=== PATIENT | female | born 1950 | race Caucasian/White ===

== ENCOUNTER 2022-06-30 13:28 | Outpatient (CLI) | payer MEDICARE, BC, SELFPAY ==
--- OUTSIDE RECORDS SUMMARY | 2022-06-30 13:31 | XMS_ITS | Encounter Summary ---
:1950 Author Organization [facility] Address [address] [place] [address]. [place] [address] Care Team Providers Name Role Phone Anila Quiñones MD Primary Care Provider Reason for Visit Auth/Cert Specialty Diagnoses / Procedures Referred By Contact Refer red To Contact Surgery Diagnoses UTEROVAGINAL PROLAPSE, STRESS URINARY INCONTINENCE Rh Periop Services Procedures [facility] PELVIC PROCEDURE [address] [place], [place] [phone] Fax: Referral ID Status Reason Start Date Expiration Date Visits Requ ested Visits Authorized [id number] 1 1 Encounter Details Date Type Department Care Team Description 12/17/2018 Anesthesia Event [facility] Tae Beckford MD [facility] [address] [place], [place] [id number] PeriOp Services Huong Delvalle APRN PHYSICAL ANTHROPOLOGIST [address] [facility] [address] [place], [place] [id number] [address] [place] [address] Anesthesia Record Procedure Summary Procedure Name Responsible Anesthesia Start Anesthesia Stop Anesthesiologist Time Time ROBOTIC ASSISTED Tae Wang, 12/17/18 0800 12/17 1143 LAPAROSCOPIC SUPRACERVICAL HYSTERECTOMY, BILATERAL SALPINGO OOPHORECTOMY, sacral colpopexy , AND CYSTOSCOPY (Bilateral Abdomen) Events Date Time Event Comment 12/17/2018 0800 An Start 0800 An Start Data 0800 Present 0801 An Induction 0801 MD Present 0805 An Intubation 0805 MD Present 0809 MD Present 0828 AN INCISION 0846 MD Present 0921 MD Present 1017 MD Present 1058 MD Present 1135 an stop data 1137 MD Present 1143 An Stop Electronically s igned by Huong Delvalle on December 17 9 11:43 AM 1143 MD Present Name Total midazolam 1mg/mL 1 mg fentaNYL (SUBLIMAZE) injection 200 mcg propofol (DIPRIVAN) injection 10 mg/mL vial 200 mg propofol infusion (mcg/kg/min) 515.2 mg lidocaine 1% 50 mg glycopyrrolate 0.2 mg/mL 0.9 mg neostigmine 1mg/mL 3 mg rocuronium 10mg/mL 60 mg dexamethasone 4 mg/mL 4 mg ondansetron 2 mg/mL 4 mg HYDROmorphone 1 mg/ml 1 mg ePHEDrine 5 mg/mL 15 mg phenylephrine (ALMA-SYNEPHRINE) injection 300 mcg ceFAZolin (ANCEF) intermittent infusion 2 g in 100 mL dextrose PRE-MIX 2 g esmolol 10 mg/mL 10 mg ceFAZolin (ANCEF) 1 g vial to attach to NS 100 ml bag for ADULT or 50 ml bag 1 g for PEDS lactated ringers infusion 1,000 mL Agents Name NO HELIOX O2 N2O Air Exp Sevoflurane Exp Isoflurane Exp Desflurane Exp N2O Ins Sevoflurane Ins Isoflurane Ins Desflurane O2 Auxiliary Blood No blood administrations on file. Lines, Drains, and Airways Type Details Placement Removal Incision/Surgical Site 12/17/18; 0902; Abdomen 12/17/18 0902 by Kelly Garcia RN Incision/Surgical Site 12/17/18; 0902; Vagina 12/17/18 0902 by Kelly Garcia RN Urethral Catheter 12/17/18; No; /GI/EXECUTIVE DIRECTOR OF MARKETING 12/17/18 0000 by 12/18 1239 by Pelvic Procedure; 16 fr Kelly Garcia RN Anderso n, Michelle, RN Peripheral IV 12/17/18; 0725; 22 G, 1 12/17/18 0725 by 9 1817 by 1/2 inch; Left, Dorsal; Tae Wang Dominique N Hand; Alcohol; MD Dave Injectable; Tolerated well RETIRED ETT 12/17/18; 0805; Mask 12/17/18 0805 by 12/17/18 1 134 by Ventilation: Easy; Ease Naomi Delvalle, of Intubation: Easy; Huong A, TRACTOR ENGINE MECHANIC Huong A , TRACTOR ENGINE MECHANIC Airway Size: 7; Cuffed; PHYSICAL ANTHROPOLOGIST PHYSICAL ANTHROPOLOGIST Oral; Blade Type: Verdin; Blade Size: 2; Place by: Joyce; Insertion Attempts: 1; Secured at (cm)to lip: 21 cm; Breath Sounds: Equal, clear and bilateral; End Tidal CO2: Present; Dentition: Unchanged, Intact; Grade View of Cords: 1 Gastric Tube 12/17/18; 0821; 12/17/18 0821 by 12/17/18 1230 b y Decompression; 18 fr; Tiffany Delvalle A lyssa, RN Aspiration of gastric Huong A, TRACTOR ENGINE MECHANIC content, Respiratory PHYSICAL ANTHROPOLOGIST status unchanged Packing 12/17/18; 1101; Vagina; 12/17/18 1101 by 9 1238 by (vaginal packing ); 1; Kelly Garcia, Sakina Connolly, 12/18/18; 1238 RN documented in this encounter Social History Tobacco Use Types Packs/Day Years Used Date Former Smoker Smokeless Tobacco: Never Used Comments: Quit 1988 Alcohol Use Standard Drinks/Week Comments No 0 (1 standard drink = 0.6 oz pure alcoho l) 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 Never 12/11/2018 How many drinks containing alcohol do you have on a Not aske d typical day when you are drinking? How often do you have six or more drinks on one Not asked occasion? 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 Incomplete uterovaginal prolapse. 2. Associated cystocele, rectocele and enterocele Anesthesia Type: General, ETT Note: Anesthesia Post Evaluation Patient location during evaluation: PACU Patient participation: Able to fully participate in evaluation Level of consciousness: awake Pain management: adequate Airway patency: patent Cardiovascular status: acceptable Respiratory status: acceptable Hydration status: acceptable PONV: controlled Anesthetic complications: None Last vitals: Vitals: 12/17/18 1245 12/17/18 1300 12/17/18 1348 BP: 125/69 119/56 Pulse: 65 Resp: 12 10 12 Temp: SpO2: 100% 100% Electronically Signed By: Armando Elizabeth DO December 17, 2018 3:21 PM H WORKER Anesthesia Preprocedure Evaluation - Tae Wang MD - 12/17/2018 7:27 AM CST Anesthesia Pre-Procedure Evaluation Patient: Yen Farrar : 1950 Preoperative Diagnosis: UTEROVAGINAL PROLAPSE, STRESS URINARY INCONTINENCE Procedure(s): ROBOTIC ASSISTED LAPAROSCOIC SUPRACERVICAL HYSTERECTOMY, BILATERAL SALPINGO OOPHORECTOMY, POSSIBLE RETROPUBIC MIDURETHRAL SLING,AND CYSTOSCOPY, POSSIBLE TRANSVAGINAL RECTOCELE REPAIR, SACROCOLPOPEXY Past Medical History: Diagnosis Date ??? Hyperlipidemia ??? Hypertension Past Surgical History: Procedure Laterality Date ??? BIOPSY OF MOUTH LESION ??? LAPAROSCOPY DIAGNOSTIC (EXECUTIVE DIRECTOR OF MARKETING) ??? ORTHOPEDIC SURGERY Left Elbow surgery, and metal removed ??? TONSILLECTOMY Anesthesia Evaluation . Pt has had prior anesthetic. No history of anesthetic complications ROS/MED HX ENT/Pulmonary: - neg pulmonary ROS Neurologic: - neg neurologic ROS Cardiovascular: (+) Dyslipidemia, hypertension----. : . . . :. . METS/Exercise Tolerance: Hematologic: - neg hematologic ROS Musculoskeletal: - neg musculoskeletal ROS GI/Hepatic: - neg GI/hepatic ROS Renal/Genitourinary: - ROS Renal section negative Endo: - neg endo ROS Psychiatric: - neg psychiatric ROS Infectious Disease: Malignancy: - no malignancy Other: - neg other ROS Physical Exam Normal systems: cardiovascular, pulmonary and dental Airway Mallampati: I TM distance: >3 FB Neck ROM: full Dental Cardiovascular Pulmonary Lab Results Component Value Date HGB 14.3 12/17/2018 Preop Vitals BP Readings from Last 3 Encounters: 12/17/18 136/84 Pulse Readings from Last 3 Encounters: No data found for Pulse Resp Readings from Last 3 Encounters: 12/17/18 17 SpO2 Readings from Last 3 Encounters: 12/17/18 100% Temp Readings from Last 1 Encounters: 12/17/18 98.3 ??F (36.8 ??C) (Temporal) Ht Readings from Last 1 Encounters: 12/17/18 1.626 m (5' 4) Wt Readings from Last 1 Encounters: 12/17/18 64 kg (141 lb) Estimated body mass index is 24.2 kg/m?? as calculated from the following: Height as of this encounter: 1.626 m (5' 4). Weight as of this encounter: 64 kg (141 lb). Anesthesia Plan History & Physical Review History and physical reviewed and following examination; no interval change. ASA Status: 2 . NPO Status: > 8 hours Plan for General and ETT with Intravenous and Propofol induction. Maintenance will be Balanced. PONV prophylaxis: Ondansetron (or other 5HT-3) and Dexamethasone or Solumedrol Postoperative Care Postoperative pain management: IV analgesics and Oral pain medications. Consents Anesthetic plan, risks, benefits and alternatives discussed with: Patient or major account representative and Patient.. Tae Wang MD . H WORKER documented in this encounter Miscellaneous Notes Anesthesia Care Transfer Note - Huong Delvalle, TRACTOR ENGINE MECHANIC PHYSICAL ANTHROPOLOGIST - 12/17/2018 11:43 AM CST Images from the original note were not included. Patient: Yen Farrar Procedure(s): ROBOTIC ASSISTED LAPAROSCOIC SUPRACERVICAL HYSTERECTOMY, BILATERAL SALPINGO OOPHORECTOMY, sacral colpopexy , AND CYSTOSCOPY Diagnosis: UTEROVAGINAL PROLAPSE, STRESS URINARY INCONTINENCE Diagnosis Additional Information: No value filed. Anesthesia Type: General, ETT Note: Airway :Face Mask and Oral Airway Patient transferred to:PACU Comments: Spontaneous respirations, oral suctioned, bilateral eye opening and hand grasps. Extubated to FM O2 6lpm. VSS to PACU. Vitals: (Last set prior to Anesthesia Care Transfer) PHYSICAL ANTHROPOLOGIST VITALS 12/17/2018 1105 - 12/17/2018 1143 12/17/2018 NIBP: 117/0 (Abnormal) Pulse: 59 Electronically Signed By: Huong Delvalle APRN PHYSICAL ANTHROPOLOGIST December 17, 2018 11:43 AM H WORKER documented in this encounter Plan of Treatment Not on filedocumented as of this encounter Visit Diagnoses Not on filedocumented in this encounter Administered Medications Inactive Administered Medications - up to 3 most recent administrations Medication Order MAR Action Action Date Dose Rate Site ceFAZolin (ANCEF) 1 g vial to Given 12/17/2018 10:04 AM PITCH WORKER 1 g attach to NS 100 ml bag for ADULT or 50 ml bag for PEDS Routine, 1 g, Intravenous, SEE ADMIN INSTRUCTIONS, Starting on Mon12/17/18 at 0645, Intra-Op Dose.?Give every 2 hours while patient in surgery, starting 2 hours after pre-op dose.?DO NOT GIVE intra-op dose if CrCl less than 10 mL/min (on dialysis).?If CrCL less than 50 mL/min, double the time interval between doses., Indications: Perioperative Pharmacoprophylaxis, Pre-procedure ceFAZolin (ANCEF) intermittent infusion 2 g in Given 019 8:06 AM PITCH WORKER 2 g 100 mL dextrose PRE-MIX Routine, 2 g, Intravenous, PRE-OP/PRE-PROCEDURE, Starting on Mon12/17/18 at 0645, For 1 dose, Give first dose within 1 hour PRIOR to incision. If patient weight is greater than or equal to 120 kg increase dose to 3 g., Indications: Perioperative Pharmacoprophylaxis, Pre-procedure dexamethasone (DECADRON) injection Given 12/17/2018 8:02 AM PITCH WORKER 4 mg Intravenous, PRN, Administer over 1 Minutes, Starting on Mon12/17/18 at 0802, Anesthesia Intra-op ePHEDrine injection Given 12/17/2018 8:13 AM PITCH WORKER 10 mg PRN, Starting on Mon12/17/18 at 0810, Anesthesia Intra-op Given 12/17/2018 8:10 AM PITCH WORKER 5 mg esmolol (BREVIBLOC) injection Given 12/17/2018 8:29 AM PITCH WORKER 10 mg PRN, Starting on Mon12/17/18 at 0829, Anesthesia Intra-op fentaNYL (PF) (SUBLIMAZE) injection Given 12/17/2018 9:20 AM PITCH WORKER 50 mcg PRN, Administer over 3-5 Minutes, Starting on Mon12/17/18 at 0801, Anesthesia Intra-op Given 12/17/2018 8:55 AM PITCH WORKER 50 mcg Given 12/17/2018 8:01 AM PITCH WORKER 100 mcg glycopyrrolate (ROBINUL) injection Given 12/17/2018 11:01 AM PITCH WORKER 0.6 mg Intravenous, PRN, Administer over 1-2 Minutes, Starting on Mon12/17/18 at 0810, Anesthesia Intra-op Given 12/17/2018 8:10 AM PITCH WORKER 0.3 mg HYDROmorphone (DILAUDID) injection Given 12/17/2018 10:54 AM PITCH WORKER 0.5 mg Intravenous, PRN, Starting on Mon12/17/18 at 0939, Anesthesia Intra-op Given 12/17/2018 9:39 AM PITCH WORKER 0.5 mg lactated ringers infusion New Bag 12/17/2018 11:03 AM PITCH WORKER at 25 mL/hr, Intravenous, CONTINUOUS, IF patient NOT on dialysis., Pre-procedure, Starting on Mon12/17/18 at 0700, Until Mon12/17/18 at 1138 New Bag 12/17/2018 7:45 AM PITCH WORKER lidocaine 1 % injection Given 12/17/2018 8:01 AM PITCH WORKER 50 mg Intravenous, PRN, Starting on Mon12/17/18 at 0801, Anesthesia Intra-op midazolam (VERSED) injection Given 12/17/2018 7:58 AM PITCH WORKER 1 mg Administer over 2 Minutes, PRN, Starting on Mon12/17/18 at 0758, Anesthesia Intra-op neostigmine (PROSTIGMINE) injection Given 12/17/2018 11:02 AM PITCH WORKER 3 mg Intravenous, PRN, Starting on Mon12/17/18 at 1102, Anesthesia Intra-op ondansetron (ZOFRAN) injection Given 12/17/2018 10:33 AM PITCH WORKER 4 mg Intravenous, PRN, Administer over 2-5 Minutes, Starting on Mon12/17/18 at 1033, Anesthesia Intra-op phenylephrine (ALMA-SYNEPHRINE) injection New Bag 12/17/2018 8:14 AM PITCH WORKER 100 mcg Intravenous, CONTINUOUS PRN, Starting on Mon12/17/18 at 0814, Anesthesia Intra-op New Bag 12/17/2018 8:10 AM PITCH WORKER 200 mcg propofol (DIPRIVAN) infusion New Bag 12/17/2018 8:15 AM 50 mcg/kg/min 19.2 mL/hr Intravenous, CONTINUOUS PRN, PITCH WORKER Starting on Mon12/17/18 at 0815, Anesthesia Intra-op propofol (DIPRIVAN) injection 10 mg/mL v ial Given 12/17/2018 8:01 AM PITCH WORKER 200 mg PRN, Starting on Mon12/17/18 at 0801, Anesthesia Intra-op rocuronium (ZEMURON) injection Given 12/17/2018 9:46 AM PITCH WORKER 10 mg PRN, Starting on Mon12/17/18 at 0802, Anesthesia Intra-op Given 12/17/2018 8:02 AM PITCH WORKER 50 mg documented in this encounter Care Teams Web Architect Relationship Specialty Start Date End Date Anila Quiñones MD PCP - General Family Practice 12/05/[address] [address] documented as of this encounter
--- OUTSIDE RECORDS SUMMARY | 2022-06-30 13:31 | XMS_ITS | Clinical Summary ---
:1950 Author Organization [facility] [place] [address] Care Team Providers Name Role Phone Anila Quiñones MD Primary Care Provider Allergies Active Allergy Reactions Severity Noted Date Comments Morphine Sulfate *Unknown 10/03/2021 Medications Medication Sig Dispensed Refills Start Date End Date Status fluticasone (50 mcg SPRAY TWO SPRAYS 16 g 4 06/29/2020 Active per actuation) nasal INTO EACH solution NOSTRIL ONCE (FLONASE)Indications: DAILY Allergic rhinitis, unspecified seasonality, unspecified trigger ketotifen (Alaway) Place 1 Drop 1 Bottle 0 04/05/2021 Active 0.025 % (0.035 %) into both eyes 2 ophthalmic solution times daily. polyethylene glycol Place into the 0 04/05/2021 Active 400 (Blink Gel Tears) eye(s). Up to 4 0.25 % drop times daily as needed for dry eyes. amLODIPine (NORVASC) Take 1 Tablet (5 90 Tablet 3 09/08/2021 Active 5 mg mg) by mouth tabletIndications: once daily. Hypertension atorvastatin Take 1 Tablet 90 Tablet 3 09/08/2021 Ac tive (LIPITOR) 20 mg (20 mg) by mouth tabletIndications: at bedtime. Hyperlipidemia, unspecified hyperlipidemia type alendronate (FOSAMAX) Take 1 Tablet 13 Tablet 3 09/08/2021 Active 70 mg (70 mg) by mouth tabletIndications: once a week in Osteoporosis, the morning. unspecified Take on empty osteoporosis type, stomach with unspecified full glass of pathological fracture water. Do not presence lie down for 1 hr. ketoconazole 2% Apply topically 15 g 0 05/25/2022 022 topical (NIZORAL) to affected creamIndications: area(s) 2 times Rash daily for 14 days. Active Problems Problem Noted Date Age-related osteoporosis without current pathological fracture 09/08/2021 Overview: Started Fosamax 2018 Hyperlipidemia 11/28/2018 Hypertension 11/26/2018 Encounters Date Type Specialty Care Team Description 06/23/2022 Office Visit Dave Richey Breas t Problem (Possible MD melanoma on rig ht breast, fairly large.) 06/23/2022 Travel 05/25/2022 Telemedicine Anila Quiñones MD [facility]; Derm Problem (Rash along the L nostril, flares up with heat - itchy, red, has tried hydrocortisone cream (only hel ps with itching), unsur e when this started - x1 ye ar? ) 05/25/2022 Travel from Last 3 Months Immunizations Name Administration Dates Next Due Influenza, High-dose Inactivated 08/16/2018, 09/09/2016, 09/2016, 07/24/2014 Influenza, IIV4 08/07/2019, 07/29/2013 Influenza, Inactivated AIIV4 (Age 65+ 07/20/2021 Years) Preserv Free Influenza, Inactivated IIV3 (Age 65+ 08/22/2017 Years) Preserv Free Pneumococcal Poly,23-Valent 09/08/2021 (Pneumovax) Pneumococcal conj 13-Valent (Prevnar 05/18/2020 13) Tdap, Unspecified 11/26/2018 Zoster (Shingrix-RZV, recombinant) 06/19/2019, 03/06/2019 Family History Medical History Relation Name Comments Heart attack Father Stroke Mother Relation Name Status Comments Father Mother Social History Tobacco Use Types Packs/Day Years Used Date Former Smoker Cigarettes Smokeless Tobacco: Never Used Tobacco Cessation: Counseling Given: Yes Comments: Quit 30 years ago Alcohol Use Standard Drinks/Week Comments No 0 (1 standard drink = 0.6 oz pure alcoho l) 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 Not asked How many drinks containing alcohol do you have on a Not aske d typical day when you are drinking? How often do you have six or more drinks on one Not asked occasion? 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 Obstetrics History Para Term AB IAB SAB Ectopic Multiple Living Live Births 3 3 3 Date Outcome GA Total Labor/2nd/3rd Weight Sex Delivery Anes PTL Cindy A 1 A5 Name Clin Labor Term Term Term Last Filed Vital Signs Vital Sign Reading Time Taken Comments Blood Pressure 155/87 06/23/2022 8:37 AM CDT Pulse 76 06/23/2022 8:35 AM CDT Temperature 36.8 ??C (98.2 ??F) 03/14/2019 10:26 AM CDT Respiratory Rate 12 04/11/2019 2:02 PM CDT Oxygen Saturation 99% 06/23/2022 8:35 AM CDT Inhaled Oxygen Concentration - - Weight 61.9 kg (136 lb 6.4 oz) 06/23/2022 8:35 AM CDT Height 162 cm (5' 3.78) 06/23/2022 8:35 AM CDT Body Mass Index 23.57 06/23/2022 8:35 AM CDT Plan of Treatment Health Maintenance Due Date Last Done Comments Mammogram for age 45-75 1994 Influenza for age 65+ 06/23/2022 07/20/2021, 08/07/2019, 08/16/2018, Additional history exists Fecal testing non-DNA 07/29/2022 07/29/2021, 06/03/2020 (FIT,FOBT,iFOBT) for age 45-75 Depression screening for age 12+ 09/08/2022 09/08/2021, , 02/20/2019, Additional history exists Medicare Wellness for age 65+ 09/08/2022 09/08/2021, 2019 BMI (ht and wt on same day) for 06/23/2023 06/23/2022, 08/23, age 18+ 04/05/2021, Additional history exists Lipids for age 45-75 09/08/2026 09/08/2021, 05/18/2020, 02/20/2019, Additional history exists Tetanus booster 11/26/2028 11/26/2018 Tdap Completed 11/26/2018 DEXA/DXA scan for age 65+ Completed 02/26/2019 Zoster (shingles) series for age Completed 06/19/2019, 50+ Hepatitis C screening for age Completed 09/08/2021 18-79 Pneumococcal series for age 65+ Completed 09/08/2021, 04/23 COVID-19 vaccine series Completed 01/26/2022, 08/14/2021, 01/07/2021, Additional history exists Results Not on filefrom Last 3 Months Insurance Payer Benefit Plan / Subscriber ID Effective Dates Phone Addre ss Type Group BLUE [employer]OSS [place] [employer] [id number] 2016-Present [address] [address] [place], [place] [id number] Care Teams Dependency Program Director Relationship Specialty Start Date End Date Anila Quiñones MD PCP - General Family Practice 11/13/[address] [place] [address]
--- OUTSIDE RECORDS SUMMARY | 2022-06-30 13:31 | XMS_ITS | Encounter Summary ---
:1950 Author Organization [facility] Address [address] [place] [address]. [place] [address] Care Team Providers Name Role Phone Anila Quiñones MD Primary Care Provider Encounter Details Date Type Department Care Team Description 12/17/2018 Travel Social History Tobacco Use Types Packs/Day Years [...] on file documented as of this encounter Plan of Treatment Not on filedocumented as of this encounter Visit Diagnoses Not on filedocumented in this encounter Care Teams Flash Oven Operator Relationship Specialty Start Date End Date Anila Quiñones MD PCP - General Family Practice 12/05/18 [facility] [address] [place] [address] documented as of this encounter
--- OUTSIDE RECORDS SUMMARY | 2022-06-30 13:31 | XMS_ITS | Encounter Summary ---
:1950 Author Organization [place] Address [facility] [place] [address] Care Team Providers Name Role Phone Anila Quiñones MD Primary Care Provider Reason for Visit Auth/Cert Specialty Diagnoses / Procedures Referred By Contact Refer red To Contact Surgery Diagnoses UTEROVAGINAL PROLAPSE, STRESS URINARY INCONTINENCE Rh Periop Services Procedures DAVINCI PELVIC PROCEDURE [address] [place], [place] [address] Fax: Referral ID Status Reason Start Date Expiration Date Visits Requ ested Visits Authorized [id number] 1 1 Encounter Details Date Type Department Care Team Description 12/17/2018 Surgery [facility] Car Mei ASSISTED [place] [facility] jalyn Smith MD LAPAROSCOPIC [address] [facility] [place], [place] [address] [address] HYSTEREC [place], [place] [phone] [address], [place] [address] sacral colpopexy , AND [phone] (Wo rk) CYSTOSCOPY Surgery Details Date/Time Status Location OR Service Patient Case Class Case Tr auma Class Type Case? 12/17/18 7:30 Posted RH OR OR 15 [facility] Same Day Outpatient in AM Gynecology Surgery Bed Panel 1 Procedure LRB Anes Op Region Wound Class Commen ts ROBOTIC ASSISTED Bilateral General Abdomen II-Clean Contaminat ed LAPAROSCOPIC SUPRACERVICAL HYSTERECTOMY, BILATERAL SALPINGO OOPHORECTOMY, sacral colpopexy , AND CYSTOSCOPY Surgeon Surgeon Role Service Panel Car Mei MD Primary [facility] Gynecology 1 Special Needs '#11.2oz per H&P documented in this encounter Social History Tobacco [...] on file documented as of this encounter Last Filed Vital Signs Vital Sign Reading Time Taken Comments Blood Pressure 137/76 12/17/2018 12:35 PM SHOE PATTERNMAKER Pulse 71 12/17/2018 12:35 PM SHOE PATTERNMAKER Temperature 36.1 ??C (97 ??F) 12/17/2018 11:39 AM SHOE PATTERNMAKER Respiratory Rate 12 12/17/2018 12:45 PM SHOE PATTERNMAKER Oxygen Saturation 100% 12/17/2018 12:35 PM SHOE PATTERNMAKER Inhaled Oxygen Concentration - - Weight 64 kg (141 lb) 12/17/2018 6:10 AM SHOE PATTERNMAKER Height 162.6 cm (5' 4) 12/17/2018 6:10 AM SHOE PATTERNMAKER Body Mass Index 24.2 12/17/2018 6:10 AM SHOE PATTERNMAKER documented in this encounter Discharge Instructions Discharge InstructionsCar Mei MD - 12/18/2018 5:38 PM SHOE PATTERNMAKER Prolapse/Pelvic Reconstructive Surgery Instructions for Caring for yourself after Surgery How do I manage my pain? Pain and tenderness should lessen each day. To help keep pain under control, use the following guidelines: ??? Apply ice packs to your perineum (vaginal and rectal area) for the 1st couple of days. ??? Take 600 milligrams (mg) of ibuprofen (Advil) every 6 hours for the 1st several days. ??? Use your prescribed narcotic (oxycodone) for additional pain relief as needed. ??? Do not drive, drink alcohol or make any major decisions, such as signing important papers or managing legal issues, while taking prescription pain medication. ??? Take pain medication with food to avoid an upset stomach. How do I care for my perineum? Use pads for vaginal discharge after surgery. Discharge is normal and can last several weeks. Discharge may appear bloody, yellow or white. ??? Do not place anything in your vagina until advised by your doctor. What about bathing? Do not take a tub bath, use a hot tub or swim until advised by your doctor. You may take showers. What about bowel and bladder management? Keep stools soft and regular. We recommend using the following laxatives (medicines that loosen stools and increase bowel movements) as directed by your doctor: - Milk of Magnesia - MiraLAX ??? When urinating, do not bear down. Relax and allow the bladder muscle to contract. If you are unable to urinate, contact your doctor. ??? If you go home with a catheter, your doctor may prescribe an antibiotic for you to take before bed to help prevent infection. Follow up in the clinic as instructed to have the catheter removed. What about activity? Do not lift more than 10 pounds for 6 weeks after surgery. Avoid heavy pushing or pulling, such as vacuuming or lawn mowing. Your body???s tissues need time to heal and regain maximum strength. ??? Keep Active. Walking is encouraged. Gradually build up how long and far you walk. Climbing stairs is OK if able. ??? You may resume driving when you are no longer taking narcotic pain medication and have the strength to use the brake pedal as needed. When do I call my doctor? Call Dr. Mei CELL [phone] if you have: ?? -Any post-operative questions or concerns ?? -A fever over 100.4 F (38 C) ?? -Difficulty emptying your bladder ?? -Chills ?? -Worsening pain ?? -Nausea or vomiting Office number for non urgent issues: PATTERNMAKER documented in this encounter Medications at Time of Discharge Medication Sig Dispensed Refills Start Date End Date amLODIPine (NORVASC) 5 MG Take 5 mg by mouth 0 tablet daily aspirin (ECOTRIN LOW Take 81 mg by mouth 0 STRENGTH) 81 MG EC tablet daily atorvastatin (LIPITOR) 20 Take 20 mg by mouth 0 MG tablet daily calcium carbonate 500 mg, Take 1 tablet by 0 elemental, (OSCAL 500) mouth daily 1250 (500 Ca) MG TABS tablet multivitamin w/minerals Take 1 tablet by 0 (MULTI-VITAMIN) tablet mouth daily ibuprofen (ADVIL/MOTRIN) Take 1 tablet (600 30 tablet 0 01/17/2019 600 MG tabletIndications: mg) by mouth every 6 Post-operative state hours as needed for moderate pain oxyCODONE (ROXICODONE) 5 Take 1 tablet (5 mg) 10 tablet 0 0 12/18/2018 12/21/2018 MG tabletIndications: by mouth every 6 Post-operative state hours as needed for pain polyethylene glycol Take 17 g by mouth 30 packet 0 12/18/19 19 01/17/2019 (MIRALAX/GLYCOLAX) daily packetIndications: Post-operative state documented as of this encounter Progress Notes Sakina Simpson RN - 12/18/2018 6:16 PM CST OBSERVATION patient END time: 1814 Patient's After Visit Summary was reviewed with patient and/or daughter. Patient verbalized understanding of After Visit Summary, recommended follow up and was given an opportunity to ask questions. Discharge medications sent home with patient/family: paper RX sent with patient Discharged with daughter Sakina Hernandez RN - 12/18/2018 12:40 PM CST Had pt stand to completely empty bladder. Backfilled 250 ml sterile water back into bladder before pt felt discomfort. Mendoza removed. Pt voided 200 ccs, BUS for 31 Car Pérez MD - 12/18/2018 7:48 AM CST Post-op Day 1 Procedure: ?? Da Gerardo laparoscopic sacral colpopexy ?? Da Gerrado laparoscopic supracervical hysterectomy ?? Da Gerardo laparoscopic bilateral salpingo-oophorectomy ?? Cystourethroscopy S: Doing well Ambulating: yes, independently Diet: full liquids, no nausea or vomit Flatus: no Pain control: good on orals Vaginal Pack: removed today Mendoza catheter: passed voiding trial today O: Temp: [98.4 ??F (36.9 ??C)-99.5 ??F (37.5 ??C)] 98.6 ??F (37 ??C) Pulse: [64-76] 65 Heart Rate: [60-82] 62 Resp: [8-48] 16 BP: (99-139)/(59-92) 117/69 SpO2: [92 %-100 %] 98 % Intake/Output Summary (Last 24 hours) at 12/18/2018 0787 Last data filed at 12/18/2018 0205 Gross per 24 hour Intake 1000 ml Output 2010 ml Net -1010 ml HGB: pre-op 14.3 Post-op 11.7 Appears healthy and well, A&O x3 Abdomen is soft, slight bloating, incisions C/D/I, good BS Ext SCD, no edema Vaginal packing removed earlier today, no perineal edema. POD#1 -Progressing well post-operatively, states she feels ready for discharge home. -ambulating independently -Tolerating diet, awaiting return of flatus, continue miralax. -continue pain control alternating ibuprofen and narcotic as needed. -passed voiding trial. -Discharge home now. -I reviewed post-operative instructions and precautions/ written information provided. -Follow-up based in 2 weeks, appointment is scheduled. Car Mei MD PATTERNMAKER Ever Gilman RN - 12/18/2018 4:12 AM CST PRIMARY DIAGNOSIS:??ROBOTIC ASSISTED LAPAROSCOIC SUPRACERVICAL ??HYSTERECTOMY, BILATERAL SALPINGO OOPHORECTOMY, sacral colpopexy , AND CYSTOSCOPY OUTPATIENT/OBSERVATION GOALS TO BE MET BEFORE DISCHARGE: 1. Stable vital signs??Yes 2. Tolerating diet: Advance to full diet now. 3. Pain controlled with oral pain medications: yes, Given oxycodone 5mg for pain management. 4. Positive bowel sounds:?Yes 5. Voiding without difficulty:?mendoza in place.?? 6. Able to ambulate:?Yes, assist of 1. 7. Provider specific discharge goals met:?No Vital signs: Temp: 99.7 ??F (37.6 ??C) Temp src: Oral BP: 120/51 Pulse: 64 Heart Rate: 89 Resp: 16 SpO2: 94 % O2 Device: None (Room air) Patient is alert and orientated. VSS. 4 Lap sites across abdomen, CDI. Mendoza in place and draining adequately. Oral pain medication tolerated well. Report pain has decreased since oxycodone. Continue to provide supportive cares and monitor. ?? Direct Support Professional Home Health Nurse?? Safe discharge environment identified:??Yes Barriers to discharge:??Yes, unless medically cleared Ever Gilman December 18, 2018 PATTERNMAKER Ever Gilman RN - 12/17/2018 11:46 PM CST PRIMARY DIAGNOSIS:??ROBOTIC ASSISTED LAPAROSCOIC SUPRACERVICAL ??HYSTERECTOMY, BILATERAL SALPINGO OOPHORECTOMY, sacral colpopexy , AND CYSTOSCOPY OUTPATIENT/OBSERVATION GOALS TO BE MET BEFORE DISCHARGE: 1. Stable vital signs??Yes 2. Tolerating diet: Tolerating clear liquid. Advance to full diet now. 3. Pain controlled with oral pain medications:??Have not administered oral pain meds. 4. Positive bowel sounds:?Yes 5. Voiding without difficulty:?mendoza in place.?? 6. Able to ambulate:?Yes, assist of 1. 7. Provider specific discharge goals met:?No ?? Temp: 99.5 ??F (37.5 ??C) Temp src: Oral BP: 125/58 Pulse: 64 Heart Rate: 86 Resp: 16 SpO2: 95 % O2 Device: None (Room air) Oxygen Delivery: 2 LPM Patient is alert and orientated. VSS. 4 Lap sites across abdomen, CDI. Mendoza in place and draining adequately. Will try try to transition to oral pain medications as tolerated. Report pain has decreased since IV dilaudid on previous shift. Continue to provide supportive cares and monitor. ?? Direct Support Professional Home Health Nurse?? Safe discharge environment identified:??Yes Barriers to discharge:??Yes, unless medically cleared Ever Gilman December 17, 2018 11:53 PM?? PATTERNMAKER Gayatri Clarke RN - 12/17/2018 9:00 PM CST PRIMARY DIAGNOSIS:??ROBOTIC ASSISTED LAPAROSCOIC SUPRACERVICAL ??HYSTERECTOMY, BILATERAL SALPINGO OOPHORECTOMY, sacral colpopexy , AND CYSTOSCOPY OUTPATIENT/OBSERVATION GOALS TO BE MET BEFORE DISCHARGE: 1. Stable vital signs??Yes 2. Tolerating diet: Tolerating clear liquid tray, will advance to full liquid. 3. Pain controlled with oral pain medications:?? Patient requiring Dilaudid prn for c/o of pain 4. Positive bowel sounds:?Yes 5. Voiding without difficulty:?mendoza in place.?? 6. Able to ambulate:?Yes, ambulated half the length of Unit hallway without incident 7. Provider specific discharge goals met:?No ?? Blood pressure 119/56, pulse 65, temperature 97 ??F (36.1 ??C), temperature source Temporal, resp. rate 12, height 1.626 m (5' 4), weight 64 kg (141 lb), SpO2 100 %. VS remain stable. Lung sounds clear, adequate sats on room air. Capnography discontinued per patients wishes. Dilaudid given for c/o abdominal pain with improvement. Patient wished to continue with clear liquid meal tray for evening meal which was tolerated well. 4 Lap sites across abdomen, each closed with dermabond; intact. Mendoza patent, draining adequate amounts of clear, faintly orange urine. Patient ambulated with assist of one and gait belt approximately one half the length of Unit zhang. Patient c/o of minor weakness. Plan: Continue to provide supportive cares. ?? Direct Support Professional Home Health Nurse?? Safe discharge environment identified:??Yes Barriers to discharge:??Yes, unless medically cleared ?Entered by:??Gayatri Clarke 12/17/2018 21:00 PM ?? PATTERNMAKER Gayatri Clarke RN - 12/17/2018 4:00 PM CST PRIMARY DIAGNOSIS: ROBOTIC ASSISTED LAPAROSCOIC SUPRACERVICAL ??HYSTERECTOMY, BILATERAL SALPINGO OOPHORECTOMY, sacral colpopexy , AND CYSTOSCOPY OUTPATIENT/OBSERVATION GOALS TO BE MET BEFORE DISCHARGE: 1. Stable vital signs Yes 2. Tolerating diet:Tolerating Clears 3. Pain controlled with oral pain medications:?? Patient requiring Dilaudid prn for c/o of pain 4. Positive bowel sounds:?? Yes, hypoactive 5. Voiding without difficulty:?? mendoza in place. 6. Able to ambulate:?? No 7. Provider specific discharge goals met:?? No Blood pressure 119/56, pulse 65, temperature 97 ??F (36.1 ??C), temperature source Temporal, resp. rate 12, height 1.626 m (5' 4), weight 64 kg (141 lb), SpO2 100 %. VSS. Lung sounds clear. ETCO2 37/10 IPI 8-9 Patient c/o post surgical abdominal pain, improved afterDilaudid IV. Patient tolerating clear liquid diet, will advance to full liquid with evening meal tray. 4 Lap sites across abdomen, each closed with dermabond; intact. Mendoza patent, draining adequate amounts of clear, faintly orange urine. Plan: Continue to provide supportive cares. ?? Direct Support Professional Home Health Nurse Safe discharge environment identified: Yes Barriers to discharge: Yes, unless medically cleared Entered by: Gayatri Clarke 12/17/2018 16:00 PM PATTERNMAKER documented in this encounter Miscellaneous Notes Plan of Care - Sakina Simpson RN - 12/18/2018 4:03 PM CST PRIMARY DIAGNOSIS: ROBOTIC ASSISTED LAPAROSCOIC SUPRACERVICAL HYSTERECTOMY, BILATERAL SALPINGO OOPHORECTOMY, sacral colpopexy , AND CYSTOSCOPY OUTPATIENT/OBSERVATION GOALS TO BE MET BEFORE DISCHARGE: 1. Stable vital signs Yes 2. Tolerating diet: Yes 3. Pain controlled with oral pain medications: yes 4. Positive bowel sounds: Yes 5. Voiding without difficulty: mendoza in place. 6. Able to ambulate: Yes, assist of 1. 7. Provider specific discharge goals met: No Patient is alert and orientated. VSS. 4 Lap sites across abdomen, CDI. Mendoza was DC'd, pt voiding without difficulty. Pt has tolerated a full diet, advancing to regular for dinner. Ambulated the halls X2 this afternoon, still not passing gas. Bowel sounds active. 5mg Oxycodone given for abdominal pain. Direct Support Professional Home Health Nurse Safe discharge environment identified: Yes Barriers to discharge: Yes, unless medically cleared PATTERNMAKER Plan of Care - Sakina Simpson RN - 12/18/2018 12:00 PM CST PRIMARY DIAGNOSIS: ROBOTIC ASSISTED LAPAROSCOIC SUPRACERVICAL HYSTERECTOMY, BILATERAL SALPINGO OOPHORECTOMY, sacral colpopexy , AND CYSTOSCOPY OUTPATIENT/OBSERVATION GOALS TO BE MET BEFORE DISCHARGE: 1. Stable vital signs Yes 2. Tolerating diet: Yes 3. Pain controlled with oral pain medications: yes 4. Positive bowel sounds: Yes 5. Voiding without difficulty: mendoza in place. 6. Able to ambulate: Yes, assist of 1. 7. Provider specific discharge goals met: No Patient is alert and orientated. VSS. 4 Lap sites across abdomen, CDI. Mendoza will be DC'd and will start a voiding trial. Potentially pt may have to discontinue with catheter. Oral pain medication tolerated well. Pt feels abdomen is distended, has not passed gas. BS active. AmbulatedX1. Direct Support Professional Home Health Nurse Safe discharge environment identified: Yes Barriers to discharge: Yes, unless medically cleared PATTERNMAKER Plan of Care - Sakina Simpson RN - 12/18/2018 8:00 AM CST PRIMARY DIAGNOSIS: ROBOTIC ASSISTED LAPAROSCOIC SUPRACERVICAL HYSTERECTOMY, BILATERAL SALPINGO OOPHORECTOMY, sacral colpopexy , AND CYSTOSCOPY OUTPATIENT/OBSERVATION GOALS TO BE MET BEFORE DISCHARGE: 1. Stable vital signs Yes 2. Tolerating diet: Yes 3. Pain controlled with oral pain medications: yes 4. Positive bowel sounds: Yes 5. Voiding without difficulty: mendoza in place. 6. Able to ambulate: Yes, assist of 1. 7. Provider specific discharge goals met: No Patient is alert and orientated. VSS now, but did have some mild temps overnight. 4 Lap sites acrossabdomen, CDI. Mendoza in place and draining adequately. Oral pain medication tolerated well. Pt feels abdomen is distended, has not passed gas. BS active. Will have her ambulate after breakfast. Direct Support Professional Home Health Nurse Safe discharge environment identified: Yes Barriers to discharge: Yes, unless medically cleared PATTERNMAKER Plan of Care - Mercedes Roque RN - 12/17/2018 2:20 PM CST PRIMARY DIAGNOSIS: ROBOTIC ASSISTED LAPAROSCOIC SUPRACERVICAL HYSTERECTOMY, BILATERAL SALPINGO OOPHORECTOMY, sacral colpopexy , AND CYSTOSCOPY OUTPATIENT/OBSERVATION GOALS TO BE MET BEFORE DISCHARGE: 1. Stable vital signs Yes 2. Tolerating diet:Tolerating Clears 3. Pain controlled with oral pain medications: No requiring IV 4. Positive bowel sounds: Yes, hypoactive 5. Voiding without difficulty: No, mendoza in pace 6. Able to ambulate: No 7. Provider specific discharge goals met: No Direct Support Professional Home Health Nurse Safe discharge environment identified: Yes Barriers to discharge: Yes Entered by: Mercedes Roque 12/17/2018 3:27 PM Pt alert and orientated. VSS. Mendoza in place and patent. IVF running. IV pain medication given. Tolerating clears. Packing in place (will be removed on 12/19). Denied nausea. Will continue to monitor. Please review provider order for any additional goals. Nurse to notify provider when observation goals have been met and patient is ready for discharge. PATTERNMAKER Plan of Care - Mercedes Roque RN - 12/17/2018 2:18 PM CST ROOM # 202-2 Living Situation (if not independent, order SW consult):Home with Facility name: road design draftsperson: Donato [phone] Activity level at baseline: Independent Activity level on admit: Assist of 2. Patient registered to observation; given Patient Bill of Rights; given the opportunity to ask questions about observation status and their plan of care. Patient has been oriented to the observation room, bathroom and call light is in place. Discussed discharge goals and expectations with patient/family. PATTERNMAKER Pharmacy-Admission Medication History - Lincoln Braxton [facility] - 12/17/2018 2:12 PM SHOE PATTERNMAKER [employer] meds completed by pre-admitting nurse ( Suri Briggs RN ). No further clarifications requiredby pharmacy. Prior to Admission medications Medication Sig Last Dose Taking? Auth Provider amLODIPine (NORVASC) 5 MG tablet Take 5 mg by mouth daily 12/16/2018 at 2100 Yes Reported, Patient aspirin (ECOTRIN LOW STRENGTH) 81 MG EC tablet Take 81 mg by mouth daily Past Month at Unknown time Yes Reported, Patient atorvastatin (LIPITOR) 20 MG tablet Take 20 mg by mouth daily 12/16/2018 at 2100 Yes Reported, Patient calcium carbonate 500 mg, elemental, (OSCAL 500) 1250 (500 Ca) MG TABS tablet Take 1 tablet by mouthdaily Past Month at Unknown time Yes Reported, Patient multivitamin w/minerals (MULTI-VITAMIN) tablet Take 1 tablet by mouth daily Past Month at Unknown time Yes Reported, Patient PATTERNMAKER Op Note - Car Mei MD - 12/17/2018 11:47 AM CST OPERATIVE REPORT NAME: Chhaya Coon MR#: [id number] : 1950 DATE OF OPERATION: December 17, 2018 SURGEON: Car Mei MD PREOPERATIVE DIAGNOSES: 1. Incomplete uterovaginal prolapse. 2. Associated cystocele, rectocele and enterocele 3. Stress urinary incontinence. POSTOPERATIVE DIAGNOSES: 1. Incomplete uterovaginal prolapse. 2. Associated cystocele, rectocele and enterocele PROCEDURE: 1. Da Gerardo laparoscopic sacral colpopexy 2. Da Gerardo laparoscopic supracervical hysterectomy 3. Da Gerardo laparoscopic bilateral salpingo-oophorectomy 4. Cystourethroscopy CLINIC PHYSICIAN DIRECTOR: KENAN Ambrosio ANESTHESIA: General endotracheal. ESTIMATED BLOOD LOSS: 10 ml IV FLUIDS: 1000 ml crystalloid 0 ml colloid FINDINGS: 1. The bladder was found to be free of lesion. Ureters were in their normal anatomic positions, werenoted to be patent via administration of dye. 2. The ovaries and fallopian tubes were normal appearing, removed per surgical plan. 3. Normal anorectal examination at the conclusion of the procedure. DRAINS: 16-Rwandan Mendoza catheter to gravity drainage. PACKING: Saline-soaked vaginal packing placed. COMPLICATIONS: None. INDICATIONS : This patient was seen in consultation regarding uterovaginal prolapse and urinary incontinence . Please refer to her clinic documentation for a complete description of her evaluation and treatment plan. She was desirous of a definitive surgical approach. Prior to the procedure the risks, benefits, maurice cations, and alternatives were discussed. Written and verbal consent were obtained. PROCEDURE IN DETAIL: The patient was brought to the operating suite. She was administered prophylactic IV antibiotics, had sequential compression devices present and functioning on her lower extremities. She was placed in a supine position, administered general endotracheal anesthesia without complication. She was now carefully positioned in the dorsal lithotomy position with her legs carefully stationed in Yellofin stirrups, with attention to all pressure points. An exam under anesthesia was performed with noted pelvic/vagianl relaxation, no adnexal or parametrial masses, normal anorectal exam. She was now sterilely prepped and draped both abdominally and vaginally, and an 18-Rwandan Mendoza catheter was placed to gravity drainage. Laparoscopic entry: At the base of the umbilicus, a 25 mm incision was created. The 12 mm trocar was then inserted and the abdomen insuflated; inspection of the intra-abdominal cavity showed there to be no lesions. The gel point/small lorene retractor was inserted and assembled. She was placed in steep Trendelenburg position and 3 additional laparoscopic ports were placed 8 mm mid right quadrant, 8 mm mid left quadrant,and 8 mm far left quadrant. The da Gerardo robotic arms were brought to the patient's bedside and operative control was assumed at the console. Bilateral Salpingo-oophorectomy: The right infundibulo-pelvic ligament was elevated. A peritoneal window was created below the ligament and above the level of the visualized ureter. The right IP ligament was then cauterized. The adnexa was grasped, the peritoneum was cauterized mobilizing and the specimen. This was repeated on the left side in-a similar fashion. The specimens were left attached to the uterus. Supracervical hysterectomy: The left round ligament was grasped, cauterized, and incised. The anterior broad ligament was then scored opened. The utero-ovarian pedicle was now cauterized and incised. The broad ligament was further dissected using cautery. The uterine vessels were visualized and cauterized. Anteriorly, a peritoneal bladder flap had been developed transversely and dissected down past the external cervical os. This procedure was then repeated in a similar fashion on the patient's right side. At this point, the specimen was truncated from the residual cervix leaving 1-2 cm of residual cervical tissue. The specimen was tagged for later removal. Sacral colpopexy: A Lucite probe was placed within the vaginal canal. Anteriorly, the bladder was dissected down the anterior vaginal muscularis approximately 9 cm sagitally. Posteriorly, the peritoneum was dissected off the posterior rectovaginal septum and dissected down to the rectovaginal septum, approximately 11 cm sagitally, as close to the perineal body as possible. Sacral dissection: At the sacral promontory the right ureter was noted to be lateral to the area of dissection. The peritoneum was elevated and incised. The peritoneal incision was taken down around the pelvic curvature to meet up with the posterior vaginal dissection. The peritoneal edges were carefully mobilized for future closure. At the promontory the connective tissue was dissected down to the anterior longitudinal ligament. The middle sacral vessel was cauterized. Mesh Attachment. A 5 cm x 15 cm piece of Coloplast Restorelle polypropylene mesh was attached to the anterior vaginalmuscularis using approximately 69 interrupted sutures of 2-0 PDS. An identical sheet of mesh was attached to the posterior vaginal wall using approximately 69 interrupted sutures of 2-0 PDS. The long arms of the mesh were now brought to the sacral promontory and attached to the anterior longitudinal ligament using 3 interrupted sutures of O G ore-Jb. Appropriate tensioning was ascertained using visual and palpating clues. Redundant longitudinal mesh was trimmed and the resultant peritoneum was closed with monocryl suture, thus retroperitonealizing the mesh repair. Cystourethroscopy was now performed, which noted patent ureters bilaterally and normal appearing bladder. Specimen removal: The uterine specimen was now removed from the abdominal cavity through the umbilical incision using an endo-catch bag. Laparoscopic closure: The umbilical fascia was closed with 0-PDS. The CO2 gas was allowed to escape from the patient's abdomen, and the resultant 4 skin incisions were closed with a subcuticular suture of 4-0 monocryl, and skin glue was applied. The vagina was packed with a saline-soaked vaginal packing. She had a 16-Rwandan Mendoza catheter present to gravity drainage. Sponge, lap, and needle counts were found to be correct. There were no complications from surgery. Patient was awoken from anesthesia, and brought to the recovery room in excellent condition. Car Mei MD Please CC to Dr. Mei's office: [address] [place] [address] [place] [id number] PATTERNMAKER documented in this encounter Plan of Treatment Not on filedocumented as of this encounter Procedures Procedure Name Priority Date/Time Associated Diagnosis Comme nts HEMOGLOBIN Routine 12/18/2018 6:56 AM Results f or this SHOE PATTERNMAKER procedure are i n the results section. SURGICAL PATHOLOGY Routine 12/17/2018 11:00 Resul ts for this EXAM AM SHOE PATTERNMAKER procedure are i n the results section. PROCEDURE, PELVIS, 12/17/2018 7:43 AM UTEROVAGINAL ROBOT-ASSISTED SHOE PATTERNMAKER PROLAPSE, STRESS URINARY INCONTINENCE Special Needs 5'4 / 142#11.2oz per H&P POTASSIUM STAT 12/17/2018 7:08 AM SHOE PATTERNMAKER Resul ts for this procedure are in the results section. HEMOGLOBIN STAT 12/17/2018 7:08 AM SHOE PATTERNMAKER Resul ts for this procedure are in the results section. CREATININE STAT 12/17/2018 7:08 AM SHOE PATTERNMAKER Resul ts for this procedure are in the results section. ABO/RH TYPE AND SCREEN STAT 12/17/2018 7:08 AM SHOE PATTERNMAKER EKG CARDIAC - HIM SCAN 12/10/2018 12:00 AM SHOE PATTERNMAKER documented in this encounter Results Hemoglobin (12/18/2018 6:56 AM SHOE PATTERNMAKER) P athologist Signature Hemoglobin 11.7 11.7 - 15.7 12/18/2018 [facility] g/dL 7:22 AM [facility]OE [facility] Specimen Anatomical Collection Method Collection Time Receive d Time (Source) Location / / Volume Laterality Blood specimen 12/18/2018 6:56 AM 019 6:57 (specimen) SHOE PATTERNMAKER AM SHOE PATTERNMAKER Car Mei MD LAB - BLOOD ORDERABLES Performing Organization Address City/State/ZIP Code Phon e Number [place] [address] [address] [place] [address] [facility] [address] [place], [place] [address] [facility] [phone] Surgical pathology exam (12/17/2018 11:00 AM SHOE PATTERNMAKER) Component Value Ref Test Analysis Performed At [facility] Range Method Time Signature Copath Report Patient Name: CHHAYA COON MR#: [id number] Specimen #: [id number] Collected: 12/17/2018 Received: 12/17/2018 Reported: 12/18/2018 12:48 Ordering Phy(s): CAR MEI For improved result formatting, select 'View Enhanced Report Format' under Linked Documents section. SPECIMEN(S): Uterus, bilateral fallopian tubes, bilateral ovaries FINAL DIAGNOSIS: Uterus, right ovary and fallopian tube, left ovary and fallo pian tube, supracervical hysterectomy with bilateral salpingo-oophorectomy (indication: Prolapse) - - Benign endometrium with cystic atrophy. - Intramural uterine leiomyomas (0.5 and 1.4 cm). - Right ovary with cortical inclusion cysts; unremarkable le ft ovary. - Unremarkable bilateral fallopian tubes. - Negative for malignancy. Electronically signed out by: Luci Stanley M.D. CLINICAL HISTORY: Uterovaginal prolapse, stress urinary incontinence. GROSS: The specimen is received in formalin, labeled with the patie nt's name and date of , and designated uterus, bilateral ovaries, bilateral fallopian tubes. It c onsists of a 38.3 g supracervical uterus with attached bilateral adnexa. The uterus measures 3.5 cm fundus to supracervical resection x 4.0 cm cornu to cornu x 2.5 cm anterior to posterior. The uterine serosa is pink-miles and smooth. The specimen is opened to reveal a 2.0 cm (cornu to cornu) x 3.0 cm in length endometr ial cavity. The endometrium is pink-miles and smooth and measures <0.1 cm in thickness. The specimen is sectioned to reveal two miles-white well circumscribed myometrial nodules, measuring 0.5 cm and 1.4 cm in greatest dimension. The myometrium is pink-miles and smooth with a maximum thickness of 1.5 cm. The right fimbriated fallopian tube (6.0 cm in length x 0.3- 0.5 cm in diameter) is grossly unremarkable. ??The right ovary (2.2 x 1.5 x 1.0 cm) is yellow-miles and cerebrifo rm, and is sectioned to reveal a single 0.2 cm smooth lined cortical cyst. ??The remaining parenchyma is gr ossly unremarkable. ??The left fimbriated fallopian tube (4.5 cm in length x 0.2-0.4 cm in diameter) is grossly unremarkable. The left ovary (2.0 x 1.3 x 1.0 cm) is yellow-miles and cerebriform, and grossly unremarkable. ??R epresentative sections are submitted. Summary of Sections: A1 - anterior full thickness endomyometrium (two sections in one cassette) A2-A3 - posterior full thickness endomyometrium A4 - right fallopian tube A5 - right ovary A6 - left fallopian tube A7 - left ovary (Dictated by: ALEXEY Rogers([facility]) 2018 12:33 PM) MICROSCOPIC: Microscopic examination is performed. The technical component of this testing was completed at the [facility], with the professional compo nent performed at the [facility], [address] [place] [address] ??[phone] ([phone]) CPT Codes: A: 24584-YW2 COLLECTION SITE: Client: [facility] Location: RHOR (R) Specimen (Source) Anatomical Collection Method Collection Time Re ceived Time Location / / Volume Laterality Tissue specimen UTERUS AND 12/17/2018 11:00 (specimen) FALLOPIAN TUBES, AM SHOE PATTERNMAKER CS / Unknown Car ALARCON - FRANCES Performing Organization Address City/State/ZIP Code Phon e Number [place] Creatinine (12/17/2018 7:08 AM [facility]) athologist Signature Creatinine 0.68 0.52 - 1.04 12/17/2018 [place] mg/dL 7:39 AM [facility] GFR Estimate 89 >60 12/17/2018 [place] mL/min/{1.7 7:39 AM [facility] 3_m2} HOSPITAL Comment: Non GFR Calc Starting 10/09/2018, serum creatinine ba sed estimated GFR (eGFR) will be calculated using the Chronic Kidney Dise [facility] Epidemiology Collaboration (CKD-EPI) equation. GFR Estimate If >90 >60 mL/min/{1.73_m2} 12/17/2018 7: 39 AM [facility] Comment: GFR Calc Starting 10/09/2018, serum creatinine ba sed estimated GFR (eGFR) will be calculated using the Chronic Kidney Dise [facility] Epidemiology Collaboration (CKD-EPI) equation. Specimen Anatomical Collection Method Collection Time Receive d Time (Source) Location / / Volume Laterality Blood specimen 12/17/2018 7:08 AM 019 7:09 (specimen) SHOE PATTERNMAKER AM SHOE PATTERNMAKER Armando Elizabeth DO LAB - BLOOD ORDERABLES Performing Organization Address City/[facility] Phon e Number [facility] [address] [place], [place] [address] [place] [address] [address] [place], [place] [address] [place] [address] Potassium (12/17/2018 7:08 AM [facility]) athologist Signature Potassium 4.0 3.4 - 5.3 12/17/2018 [facility] mmol/L 7:30 AM [facility] Specimen Anatomical Collection Method Collection Time Receive d Time (Source) Location / / Volume Laterality Blood specimen 12/17/2018 7:08 AM 019 7:09 (specimen) SHOE PATTERNMAKER AM SHOE PATTERNMAKER Armando Elizabeth DO LAB - BLOOD ORDERABLES Performing Organization Address City/[facility] Phon e Number M [facility] [address], [place] [address] [facility] [address] [place], [place] [address], [facility] [phone] ABO/Rh type and screen (12/17/2018 7:08 AM SHOE PATTERNMAKER) Patholo gist Method Time Signature ABO B 12/17/2018 [place] 8:15 AM [facility] RH(D) Pos [facility] Antibody Neg 12/17/2018 [place] Screen 8:15 AM [facility] Test Valid [place] 12/17/2018 [facility] 7:50 AM [facility] HOSPITAL Specimen 12/20/2018 12/17/2018 [facility] Expires 7:50 AM [facility] Specimen Anatomical Collection Method Collection Time Receive d Time (Source) Location / / Volume Laterality Blood specimen 12/17/2018 7:08 AM 019 7:09 (specimen) SHOE PATTERNMAKER AM SHOE PATTERNMAKER Car Mei MD LAB - BLOOD BANK TEST ORDER Performing Organization Address City/State/ZIP Code Phon e Number [facility] [address] [place], [place] [address] [facility] [address] [place], [place] [address], [facility] [phone] Hemoglobin (12/17/2018 7:08 AM SHOE PATTERNMAKER) P athologist Signature Hemoglobin 14.3 11.7 - 15.7 12/17/2018 [facility] g/dL 7:18 AM [facility] HOSPITAL Specimen Anatomical Collection Method Collection Time Receive d Time (Source) Location / / Volume Laterality Blood specimen 12/17/2018 7:08 AM 019 7:09 (specimen) SHOE PATTERNMAKER AM SHOE PATTERNMAKER Car Mei MD LAB - BLOOD ORDERABLES Performing Organization Address City/State/ZIP Code Phon e Number [facility] [address] [place], [place] [address] [facility] [address] [place], [place] [address], [facility] [phone] EKG CARDIAC - HIM SCAN (12/10/2018 12:00 AM SHOE PATTERNMAKER) Specimen (Source) Anatomical Location Collection Method / Collectio n Time Received Time / Laterality Volume 12/10/2018 Narrative This result has an attachment that is no t available. Provider Outside ECG ORDERABLES documented in this encounter Visit Diagnoses Not on filedocumented in this encounter Administered Medications Inactive Administered Medications - up to 3 most recent administrations Medication Order MAR Action Action Date Dose Rate Site atorvastatin (LIPITOR) tablet 20 mg Given 12/17/2018 7:42 PM SHOE PATTERNMAKER 20 mg 20 mg, Oral, EVERY EVENING, First dose on Mon12/17/18 at 2000, Post-procedure bupivacaine (MARCAINE) Given 12/17/2018 11:09 AM 10 mLs Operative Site/Surgical 0.5% preservative free SHOE PATTERNMAKER Si te injection PRN, Starting on Mon12/17/18 at 1109, Intra-procedure fentaNYL (PF) (SUBLIMAZE) injection 25-5 0 mcg Given 12/17/2018 1:19 PM SHOE PATTERNMAKER 50 mcg 25-50 mcg, Intravenous, EVERY 2 MIN PRN, other, acute pain while in PACU., Starting on Mon12/17/18 at 1145, MAX cumulative dose = 250 mcg. Use fentaNYL (SUBLIMAZE) initially, as a short acting agent for acute pain control. If insufficient, or a longer acting agent is needed, begin morphine or HYDROmorphone (DILAUDID) if ordered. For ordered IV doses 1-100 mcg give IV Push undiluted over a minimum of 3-5 minutes., PACU Given 12/17/2018 12:47 PM SHOE PATTERNMAKER 50 mcg HYDROmorphone (PF) (DILAUDID) injection 0.2 Given 11/24 10:35 PM SHOE PATTERNMAKER 0.2 mg mg 0.2 mg, Intravenous, EVERY 2 HOURS PRN, other, pain control or improvement in physical function. Hold dose for analgesic side effects., Starting on Mon12/17/18 at 1341, Notify the provider to assess for uncontrolled pain or analgesic side effects. Hold while on IV FLUXER or with regular IV opioid dosing. For ordered IV doses 0.1-4 mg give IV Push undiluted. Administer each 2mg over 2-5 minutes., Post-procedure Given 12/17/2018 6:31 PM SHOE PATTERNMAKER 0.2 mg Given 12/17/2018 4:25 PM SHOE PATTERNMAKER 0.2 mg HYDROmorphone (PF) (DILAUDID) injection Given 12/17/2018 12:36 P M SHOE PATTERNMAKER 0.5 mg 0.3-0.5 mg 0.3-0.5 mg, Intravenous, EVERY 10 MIN PRN, other, acute pain. May administer if Respiratory Rate is greater than 10, Starting on Mon12/17/18 at 1145, Max cumulative dose = 2 mg If fentaNYL (SUBLIMAZE) is also ordered, use HYDROmorphone (DILAUDID) if pain control insufficient with fentaNYL (SUMBLIMAZE) or a longer acting agent is needed. For ordered IV doses 0.1-4 mg give IV Push undiluted. Administer each 2mg over 2-5 minutes., PACU/Phase II Given 12/17/2018 12:23 PM SHOE PATTERNMAKER 0.5 mg ketorolac (TORADOL) injection 15 mg Given 12/18/2018 8:24 AM SHOE PATTERNMAKER 15 mg 15 mg, Intravenous, EVERY 6 HOURS, First dose on Mon12/17/18 at 1342, For 4 doses, Age greater than or equal to 65 years OR CrCl 30- 50 mL/min. May continue use for up to 5 days MAX if order renewed. IF celecoxib (CELEBREX) was given pre-operatively, start ketorolac (TORADOL) 12 hours after celecoxib (CELEBREX) given. Can cause pain on injection. If ordered intravenously (IV) : administer through a running maintenance fluid over 1 minute followed by a flush. If patient complains of pain on injection, may dilute 15-30 mg in 5 mL and push over 1 to 2 minutes. , Post-procedure Given 12/18/2018 1:59 AM SHOE PATTERNMAKER 15 mg Given 12/17/2018 7:42 PM SHOE PATTERNMAKER 15 mg lidocaine 1% with Given 12/17/2018 11:09 AM 10 mLs Operative Site/Surgical EPINEPHrine 1:100,000 SHOE PATTERNMAKER Sit e injection PRN, Starting on Mon12/17/18 at 1109, Intra-procedure ondansetron (ZOFRAN) injection 4 mg Given 12/17/2018 12:42 PM SHOE PATTERNMAKER 4 mg 4 mg, Intravenous, EVERY 30 MIN PRN, nausea, vomiting, Administer over 2-5 Minutes, Starting on Mon12/17/18 at 1145, For 2 doses, MAX total dose = 8 mg, including OR dosing. This is step 1 of nausea and vomiting management. If not resolved in 15 minutes, then go to step 2 [prochlorperazine (COMPAZINE) if ordered]. Irritant. For ordered IV doses 0.1-4 mg, give IV Push undiluted over 2-5 minutes., PACU/Phase II ondansetron (ZOFRAN) injection 4 mg 4 mg, Intravenous, EVERY 6 HOURS PRN, nausea, vomiting , Administer over 2-5 Minutes, Starting on Mon12/17/18 at 1341, This is Step 1 of nausea and vomiting management. If nausea not resolved in 15 minutes, go t o Step 2 prochlorperazine (COMPAZINE). Irritant. For ordered IV do ses 0.1-4 mg, give IV Push undiluted over 2-5 minutes., Post-procedure ondansetron (ZOFRAN-ODT) ODT tab 4 mg 4 mg, Oral, EVERY 6 HOURS PRN, nausea, v omiting, Starting on Mon12/17/18 at 1341, This is Step 1 of nausea and vomiting management. If n ausea not resolved in 15 minutes, go to Step 2 prochlorperazine (COMPAZINE). Do not push through foil backing. Peel back foil and gently remove. Place on to ngue immediately. Administration with liquid unnecessary W ith dry hands, peel back foil backing and gently remove tablet; do not push oral d isintegrating tablet through foil backing; administer immediately on tongue and oral disintegrati ng tablet dissolves in seconds; then swallow with saliva; liquid not required ., Post-procedure oxyCODONE (ROXICODONE) tablet 5-10 mg Given 12/18/2018 3:46 PM SHOE PATTERNMAKER 5 mg 5-10 mg, Oral, EVERY 3 HOURS PRN, other, pain control or improvement in physical function. Hold dose for analgesic side effects., Starting on Mon12/17/18 at 1341, Start with the lowest dose. May adjust dose by 5 mg every 3 hours as needed. Notify the provider to assess for uncontrolled pain or analgesic side effects. Hold while on IV FLUXER or with regular IV opioid dosing., Post-procedure Given 12/18/2018 6:26 AM SHOE PATTERNMAKER 5 mg Given 12/18/2018 2:08 AM SHOE PATTERNMAKER 5 mg phenazopyridine (PYRIDIUM) tablet 200 mg Given 12/17/2018 7:08 AM SHOE PATTERNMAKER 200 mg 200 mg, Oral, 60 MIN PRE-OP, Starting on Mon12/17/18 at 0645, For 1 dose, To be administered in pre-op holding with a sip of water., Pre-procedure polyethylene glycol (MIRALAX/GLYCOLAX) Packet Given 12/18/19 8:42 AM SHOE PATTERNMAKER 17 g 17 g 17 g, Oral, DAILY, First dose on Mon12/17/18 at 1342, 1 Packet = 17 grams. Mixed prescribed dose in 8 ounces of water. Follow with 8 oz. of water., Post-procedure prochlorperazine (COMPAZINE) injection 5 mg 5 mg, Intravenous, EVERY 6 HOURS PRN, nausea, vomiting , Administer over 1-2 Minutes, Starting on Mon12/17/18 at 1341, This is Step 2 of nausea and vomiting management. If nausea not resolved in 15 minutes, give metoclopramide (REGLAN) if ordered (step 3 of nausea and vomiting m anagement) For ordered IV doses 0.1-10 mg, give IV Push undiluted. Each 5mg over 1 minute., Post- procedure prochlorperazine (COMPAZINE) tablet 5 mg 5 mg, Oral, EVERY 6 HOURS PRN, nausea, v omiting, Starting on Mon12/17/18 at 1341, This is Step 2 of nausea and vomiting management. If n ausea not resolved in 15 minutes, give metoclopramide (REGLAN) if ordered (step 3 of nausea and vomiting management), Post-procedure sodium chloride (PF) 0.9% PF flush 3 mL Given 12/18/2018 6:29 AM SHOE PATTERNMAKER 3 mLs 3 mL, Intravenous, EVERY 8 HOURS, First dose on Mon12/17/18 at 1342, to lock peripheral IV dormant line. Also Ordered Q1H PRN, Post-procedure Given 12/17/2018 2:08 PM SHOE PATTERNMAKER 3 mLs sodium chloride (PF) 0.9% PF flush 3 mL Given 12/17/2018 10:36 PM SHOE PATTERNMAKER 3 mLs 3 mL, Intravenous, EVERY 1 HOUR PRN, line flush, to lock peripheral IV dormant line., Starting on Mon12/17/18 at 1341, Also Ordered EVERY 8 HOURS., Post-procedure Given 12/17/2018 7:45 PM SHOE PATTERNMAKER 3 mLs sodium chloride 0.9% infusion New Bag 12/17/2018 2:06 PM SHOE PATTERNMAKER 100 mL/hr at 100 mL/hr, Intravenous, CONTINUOUS, Post-procedure, Starting on Mon12/17/18 at 1342, Until Mon12/17/18 at 2106 sterile water (bottle) Given 12/17/2018 5:00 AM 500 mLs Operative Site/Surgical irrigation SHOE PATTERNMAKER Site PRN, Intra-procedure, Starting on Mon12/17/18 at 0500, Until Mon12/17/18 at 1331 documented in this encounter Active and Recently Administered Medications Times are shown in SHOE PATTERNMAKER. Scheduled Medication Order 12/16/2018 12/17/2018 12/18/2018 atorvastatin (LIPITOR) tablet 20 mg 194 (Given - Provider: Gayatri Clarke RN) 1999 (Canceled Entry - Provider: Orders Generic Provider - Comment: Automatically canceled at discontinue of medication order) 20 mg, Oral, EVERY EVENING, First dose on Mon12/17/18 at 2000, P ost-procedure ceFAZolin (ANCEF) 1 g vial to attach to NS 100 ml bag for ADULT or 50 ml bag for PEDS (CANCELED) 1004 (Given - Provider: Car ramos APRN CORDUROY BRUSHER OPERATOR) 1 g, Intravenous, SEE ADMIN INSTRUCTIONS , Starting Mon12/17/18 at 0645, Intra-Op Dose.?Give every 2 hours while patient in surgery, starting 2 hours after pre-op dose.?DO NOT GIVE intra-op dose if CrCl less than 10 mL/min (on dialysis). ?If CrCL less than 50 mL/min, double the time interval between doses., Indications: Perioperative Pharmacoprophylaxis, Pre-procedure ceFAZolin (ANCEF) intermittent infusion 2 g in 100 mL dextrose PRE-MIX (COMPLETED) 0806 (Given - Provider: Car ramos APRN CORDUROY BRUSHER OPERATOR) 2 g, Intravenous, PRE-OP/PRE-PROCEDURE, Starting Mon12/17/18 at 0645, For 1 dose, Give first dose within 1 hour PRIOR to incision. If patient weight is greater than or equal to 120 kg increase dose to 3 g., Indications: Perioperative Pharmacoprophylaxis, Pre-procedu re ketorolac (TORADOL) injection 15 mg (COMPLETED) 1404 (Given - Provider: Mercedes Roque RN)1942 (Given - Provider: Gayatri Clarke, RN) 0159 (Given - Provider: Ever Gilman, RN)0824 (Given - Provider: Sakina Simpson, RN) 15 mg, Intravenous, EVERY 6 HOURS, First dose on 12/17/18 at 1342, For 4 doses, Age greater than or equal to 65 years OR CrCl 30- 50 mL/min. May continue use for up to 5 days MAX if order renewed. IF celecoxib (CELEBREX) was given pre-oper atively, start ketorolac (TORADOL) 12 hours after celecoxib (CELEBREX) given. Can cause pain on injection. If ordered intravenously (IV) : administer through a ru nning maintenance fluid over 1 minute fo llowed by a flush. If patient complains of pain on injection, may dilute 15-30 mg in 5 mL and push over 1 to 2 minutes. , Post-procedure phenazopyridine (PYRIDIUM) tablet 200 mg (COMPLETED) 0708 (Given - Provider: Sugar Tapia RN) 200 mg, Oral, 60 MIN PRE-OP, Starting Mo n 12/17/18 at 0645, For 1 dose, To be administered in pre-op holding with a sip of water., Pre-procedure polyethylene glycol (MIRALAX/GLYCOLAX) Packet 17 g 1452 (Not Given - Provider: Mercedes Roque RN - Reason: Patient/family refused) 0842 (Given - Provider: Sakina Simpson, RN) 17 g, Oral, DAILY, First dose on 11/24 at 1342, 1 Packet = 17 grams. Mixed prescribed dose in 8 ounces of water. Follow with 8 oz. of water., Post-procedure sodium chloride (PF) 0.9% PF flush 3 mL 1408 (Given - Provider: Mercedes Roque RN)2236 (Not Given - Provider: Gayatri Clarke RN - Reason: Other - Comment: prn order used) 0629 (Given - Provider: Ever Gilman RN)1342 (Canceled Entry - Provider: Orders Generic Provider - Comment: Automatically canceled at discontinue of medication order) 3 mL, Intravenous, EVERY 8 HOURS, First dose on Mon12/17/18 at 1342, to lock peripheral IV dormant line. Also Ordered Q1H PRN, Post-procedure Continuous Medication Order 12/16/2018 12/17/2018 12/18/2018 lactated ringers infusion (CANCELED) 074 5 (New Bag - Provider: Car Delvalle APRN CRNA)0828 (Anesthesia Volume Adjustment - Provider: Car Delvalle APRN CRNA)0847 (Anesthesia Volume Adjustment - Provider: Car Delvalle APRN CRNA) 0011 (Stopped - Provider: Jenn Allen RN) at 25 mL/hr, Intravenous, CONTINUOUS, IF patient NOT on dialysis., Pre- procedure, Starting Mon12/17/18 at 0700, Until Mon12/17/18 at 1138 0907 (Anesthesia Volume Adjustment - Provider: Car Delvalle APRN CRNA)0945 (Anesthesia Volume Adjustment - Provider: Car Delvalle APRN CRNA)1030 (Anesthesia Volume Adjustment - Provider: Car Delvalle APRN CRNA) 1054 (Anesthesia Vol ume Adjustment - Provider: Car Delvalle APRN CRNA)1103 (New Bag - Provider: Car Delvalle APRN CRNA) sodium chloride 0.9% infusion (CANCELED) 1406 (New Bag - Provider: Mercedes Roque RN) at 100 mL/hr, Intravenous, CONTINUOUS, P ost-procedure, Starting Mon12/17/18 at 1342, Until Mon12/17/18 at 2106 PRN Medication Order 12/16/2018 12/17/2018 12/18/2018 bupivacaine (MARCAINE) 0.5% preservative free injection (CAN CELED) 1109 (Given - Provider: Car Mei MD) PRN, Starting Mon12/17/18 at 1109, Intra-procedure fentaNYL (PF) (SUBLIMAZE) injection 25-50 mcg (CANCELED) 1247 (Given - Provider: Ida Bolanos RN)1319 (Given - Provider: Ida Bolanos RN) 25-50 mcg, Intravenous, EVERY 2 MIN PRN, Starting Mon12/17/18 at 1145, other, acute pain while in PACU., MAX cumulative dose = 250 mcg. Use fentaNYL (SUBLIMAZE) initially, as a short acting agent for ac ashleigh pain control. If insufficient, or a longer acting agent is needed, begin morphine or HYDROmorphone (DILAUDID) if ordered. For ordered IV doses 1-100 mcg give IV Push undiluted over a minimum of 3-5 minutes., PACU HYDROmorphone (PF) (DILAUDID) injection 0.2 mg 1430 (Given - Provider: Mercedes Roque RN)1625 (Given - Provider: Gayatri Clarke, TAMEKA)1831 (Given - Provider: Gayatri Clarke, RN)2235 (Given - Provider: Gayatri Clarke, RN) 0.2 mg, Intravenous, EVERY 2 HOURS PRN, Starting Mon12/17/18 at 1341, Until Mon12/18/18 at 2019, other, pain control or improvement in physical function. Hold dose for analgesic side effects., Post-proc edure, Notify the provider to assess for uncontrolled pain or analgesic side effects. Hold while on IV FLUXER or with regular IV opioid dosing. For ordered IV doses 0.1-4 mg give IV Push undiluted. Administer each 2mg over 2-5 minutes. HYDROmorphone (PF) (DILAUDID) injection 0.3-0.5 mg (CANCELED ) 1223 (Given - Provider: Ida Bolanos RN)1236 (Given - Provider: Ida Bolanos, TAMEKA) 0.3-0.5 mg, Intravenous, EVERY 10 MIN [place] N, Starting Mon12/17/18 at 1145, Until Mon12/17/18 at 1331, other, acute pain. May administer if Respiratory Rate is greater than 10, PACU/Phase II, Max cumulativ e dose = 2 mg If fentaNYL (SUBLIMAZE) is also ordered, use HYDROmorphone (DILAUDID) if pain control insufficient with fentaNYL (SUMBLIMAZE) or a longer acting agent is needed. For ordered IV doses 0.1-4 mg give IV Push undiluted. Administer each 2mg over 2-5 minutes . ibuprofen (ADVIL/MOTRIN) tablet 600 mg 600 mg, Oral, EVERY 6 HOURS PRN, other, inflammatory pain, Starting Mon12/18/18 at 1400, May start once patient is tolerating orals and 6 hours after last toradol injection., Post-procedure lidocaine 1% with EPINEPHrine 1:100,000 injection (CANCELED) 1109 (Given - Provider: Car Mei MD) PRN, Starting 12/17/18 at 1109, Intra-procedure naloxone (NARCAN) injection 0.1-0.4 mg 0.1-0.4 mg, Intravenous, EVERY 2 MIN PRN , opioid reversal, Starting Mon12/17/18 at 1341, For respiratory rate LESS than or EQUAL to 8. Partial reversal dose: 0.1 mg titrated q 2 minutes for Analgesia Si de Effects Monitoring Sedation Level of 3 (frequently drowsy, arousable, drifts to sleep during conversation).Full reversal dose: 0.4 mg bolus for Analgesia Side Effects Monitoring Sedation Level of 4 ( somnolent, minimal or no response to sti mulation). For ordered IV doses 0.1-2mg give IVP. Give each 0.4mg over 15 seconds in emergency situations. For non- emergent situations further dilute in 9mL of NS to facilitate titration of response., Post-procedure ondansetron (ZOFRAN) injection 4 mg (CANCELED) 1242 (Given - Provider: Ida Bolanos RN) 4 mg, Intravenous, EVERY 30 MIN PRN, jordan sea, vomiting, Administer over 2-5 Minutes, Starting 12/17/18 at 1145, For 2 doses, MAX total dose = 8 mg, including OR dosing. This is step 1 of nausea and vo miting management. If not resolved in 15 minutes, then go to step 2 [prochlorperazine (COMPAZINE) if ordered]. Irritant. For ordered IV doses 0.1-4 mg, give IV Push undiluted over 2-5 minutes., PACU/Phase II ondansetron (ZOFRAN) injection 4 mg(Linked Group 1) 4 mg, Intravenous, EVERY 6 HOURS PRN, na usea, vomiting, Administer over 2-5 Minutes, Starting 12/17/18 at 1341, This is Step 1 of nausea and vomiting management. If nausea not resolved in 15 minutes, go to Step 2 prochlorperazine (COMPAZIN E). Irritant. For ordered IV doses 0.1-4 mg, give IV Push undiluted over 2-5 minutes., Post-procedure ondansetron (ZOFRAN-ODT) ODT tab 4 mg(Linked Group 1) 4 mg, Oral, EVERY 6 HOURS PRN, nausea, v omiting, Starting 12/17/18 at 1341, This is Step 1 of nausea and vomiting management. If nausea not resolved in 15 minutes, go to Step 2 prochlorperazine (COMP AZINE). Do not push through foil backing . Peel back foil and gently remove. Place on tongue immediately. Administration with liquid unnecessary With dry hands, peel back foil backing and gently remove t ablet; do not push oral disintegrating t ablet through foil backing; administer immediately on tongue and oral disintegrating tablet dissolves in seconds; then swallow with saliva; liquid not required., Post-procedure oxyCODONE (ROXICODONE) tablet 5-10 mg 0208 (Given - Provider: Ever Gilman RN)0626 (Given - Provider: Ever Gilman RN)1546 (Given - Provider: Sakina Simpson RN) 5-10 mg, Oral, EVERY 3 HOURS PRN, other, pain control or improvement in physical function. Hold dose for analgesic side effects., Starting 12/17/18 at 1341, Start with the lowest dose. May adjust dos e by 5 mg every 3 hours as needed. Notif y the provider to assess for uncontrolled pain or analgesic side effects. Hold while on IV FLUXER or with regular IV opioid dosing., Post-procedure prochlorperazine (COMPAZINE) injection 5 mg(Linked Group 2) 5 mg, Intravenous, EVERY 6 HOURS PRN, na usea, vomiting, Administer over 1-2 Minutes, Starting 12/17/18 at 1341, This is Step 2 of nausea and vomiting management. If nausea not resolved in 15 minutes, give metoclopramide (REGLAN) if ordered (step 3 of nausea and vomiting management) For ordered IV doses 0.1-10 mg, give IV Push undiluted. Each 5mg over 1 minute., Post-procedure prochlorperazine (COMPAZINE) tablet 5 mg(Linked Group 2) 5 mg, Oral, EVERY 6 HOURS PRN, nausea, v omiting, Starting 12/17/18 at 1341, This is Step 2 of nausea and vomiting management. If nausea not resolved in 15 minutes, give metoclopramide (REGLAN) if ord ered (step 3 of nausea and vomiting management), Post-procedure sodium chloride (PF) 0.9% PF flush 3 mL 3 mL, Intravenous, EVERY 1 HOUR PRN, migel e flush, post meds or blood draw, Starting 12/17/18 at 1341, for peripheral IV line flush post IV meds, Post-procedure sodium chloride (PF) 0.9% PF flush 3 mL 1945 (Given - Provider: Gayatri Clarke, RN)2236 (Given - Provider: Gayatri Clarke, RN) 3 mL, Intravenous, EVERY 1 HOUR PRN, migel e flush, to lock peripheral IV dormant line., Starting 12/17/18 at 1341, Also Ordered EVERY 8 HOURS., Post-procedure sterile water (bottle) irrigation (CANCELED) 0500 (Given - Provider: Car Mei MD) PRN, Intra-procedure, Starting Mon12/17/18 at 0500, Until Mon at 1331 Linked Groups Order Group 1: ondansetron (ZOFRAN-ODT) ODT tab 4 mgJump to med 4 mg, Oral, EVERY 6 HOURS PRN, nausea, v omiting, Starting 12/17/18 at 1341
This is Step 1 of nausea and vomiting management. If nausea not resolved in 15 minutes, go to St ep 2 prochlorperazine (COMPAZINE). Do no t push through foil backing. Peel back foil and gently remove. Place on tongue immediately. Administration with liquid unnecessary With dry hands, peel b ack foil backing and gently remove table t; do not push oral disintegrating tablet through foil backing; administer immediately on tongue and oral disintegrating tablet dissolves in seconds; then swallow with saliva; liquid not required.
Po st-procedure Or ondansetron (ZOFRAN) injection 4 mgJump to med 4 mg, Intravenous, EVERY 6 HOURS PRN, na usea, vomiting, Administer over 2-5 Minutes, Starting 12/17/18 at 1341
This is Step 1 of nausea and vomiting management. If nausea not resolved in 15 minutes, go to Step 2 prochlorperazine (COMPAZINE). Irritant. For ordered IV doses 0.1-4 mg, give IV Push undiluted over 2-5 minutes.
Post-procedure Group 2: prochlorperazine (COMPAZINE) injection 5 mgJump to med 5 mg, Intravenous, EVERY 6 HOURS PRN, na usea, vomiting, Administer over 1-2 Minutes, Starting 12/17/18 at 1341
This is Step 2 of nausea and vomiting management. If nausea not resol aidan in 15 minutes, give metoclopramide ( REGLAN) if ordered (step 3 of nausea and vomiting management) For ordered IV doses 0.1-10 mg, give IV Push undiluted. Each 5mg over 1 minute.
Post-procedure Or prochlorperazine (COMPAZINE) tablet 5 mgJump to med 5 mg, Oral, EVERY 6 HOURS PRN, nausea, v omiting, Starting 12/17/18 at 1341
This is Step 2 of nausea and vomiting management. If nausea not resolved in 15 minutes, give metocloprami de (REGLAN) if ordered (step 3 of nausea and vomiting management)
Post-procedure documented in this encounter Care Teams [employer] Relationship Specialty Start Date End Date Anila Quiñones MD PCP - General Family Practice 12/05/[address] [id number] documented as of this encounter
--- OUTSIDE RECORDS SUMMARY | 2022-06-30 13:31 | XMS_ITS ---
:1950 Author Care Team Providers Name Role Phone Shelley Salazar Primary Care Provider Unavailable Allergies Code Code System Name Reaction Severity Status Onset NKDA ? Medications Name Status Start Date Stop Date ? ? alendronate 70 mg tablet Active ? Not bao ilable amlodipine 5 mg tablet Active ? Not avail able atorvastatin 20 mg tablet Active ? Not av ailable fluticasone propionate 50 mcg/actuation nasal Active ? Not available spray,suspension Problems None recorded. Procedures None recorded. Results Lab Results Date Name Specimen Result Interpretation Description Value Range Status Address ? 05/19/2021 SARS CoV 2 RNA, Nose (nasal ? Result negative ? ? [facility], GIL+probe, passage) [facility] [place]: [address] , [place] Past Encounters 05/19/2021 Exposure to SARS-CoV-2 Shelley Salazar PA-C: [address], [address], [place] [address], Ph. Social History None recorded. Vaccine List None recorded. Plan of Care Reminders Provider Appointments None recorded. ? ? Lab None recorded. ? ? Referral None recorded. ? ? Procedures None recorded. ? ? Surgeries None recorded. ? ? Imaging None recorded. ? ? Vitals Blood Pressure 127/75 mm[Hg]
--- OUTSIDE RECORDS SUMMARY | 2022-06-30 13:31 | XMS_ITS | Encounter Summary ---
:1950 Author Organization [place] Address [address] [place] [address]. [place] [address] Care Team Providers Name Role Phone Anila Quiñones MD Primary Care Provider Reason for Visit Auth/Cert Specialty Diagnoses / Procedures Referred By Contact Refer red To Contact Surgery Diagnoses UTEROVAGINAL PROLAPSE, STRESS URINARY INCONTINENCE Rh Periop Services Procedures DAVINCI PELVIC PROCEDURE [address] [place], [place] [address] Fax: Referral ID Status Reason Start Date Expiration Date Visits Requ ested Visits Authorized [id number] 1 1 Encounter Details Date Type Department Care Team Description 12/17/2018 - Hospital Encounter [facility] Car Mei Post-operative 12/18/2018 [facility] Anayeli Smith MD [facility] (Primary Dx[facility] Dept CARE SERVICES MANAGER [address] [facility] [place], [place] [address] [facility] [id number] [facility] [address] [place] [address] Social History Tobacco Use Types Packs/Day Years [...] Sign Reading Time Taken Comments Blood Pressure 143/75 12/18/2018 3:27 PM [facility] Pulse 78 12/18/2018 3:27 PM [employer] Temperature 36.9 ??C (98.5 ??F) 12/18/2018 3:27 PM [employer] Respiratory Rate 16 12/18/2018 3:27 PM [employer] Oxygen Saturation 93% 12/18/2018 3:27 PM [employer] Inhaled Oxygen Concentration - - Weight 64 kg (141 lb) 12/17/2018 6:10 AM [employer] Height 162.6 cm (5' 4) 12/17/2018 6:10 AM [employer] Body Mass Index 24.2 12/17/2018 6:10 AM [employer] documented in this encounter Discharge Instructions Discharge Car Rodriguez MD - 12/18/2018 5:38 PM [employer] Prolapse/Pelvic Reconstructive Surgery Instructions for Caring for [...] do I call my doctor? Call Dr. Yohan MENDES [phone] if you have: ?? -Any post-operative questions or concerns ?? -A fever over 100.4 F (38 C) ?? -Difficulty emptying your bladder ?? -Chills ?? -Worsening pain ?? -Nausea or vomiting Office number for non urgent issues: [employer] documented in this encounter Medications at Time [...] RX sent with patient Discharged with daughter [employer] AGENT Sakina Simpson RN - 12/18/2018 12:40 PM CST Had pt stand to completely empty bladder. Backfilled 250 ml sterile water back into bladder before pt felt discomfort. Mendoza removed. Pt voided 200 ccs, BUS for 31 T EXPRESS AGENT Car Mei MD - 12/18/2018 7:48 AM CST Post-op Day 1 Procedure: ?? Da Gerardo laparoscopic sacral colpopexy ?? Da Gerardo laparoscopic supracervical hysterectomy ?? Da Gerardo laparoscopic [...] Intake/Output Summary (Last 24 hours) at 12/18/2018 0748 Last data filed at 12/18/2018 0205 Gross [...] weeks, appointment is scheduled. Car Mei MD [employer]ENT Ever Gilman RN - 12/18/2018 4:12 AM [...] to provide supportive cares and monitor. ?? Wood Machinist Apprentice Nurse?? Safe discharge environment identified:??Yes Barriers to discharge:??Yes, unless medically cleared Ever Gilman December 18, 2018 Ever Marcial RN - 12/17/2018 11:46 PM CST PRIMARY [...] to provide supportive cares and monitor. ?? Wood Machinist Apprentice Nurse?? Safe discharge environment identified:??Yes Barriers to discharge:??Yes, unless medically cleared Ever Gilman December 17, 2018 11:53 PM?? Gayatri Dewitt RN - 12/17/2018 9:00 PM CST PRIMARY [...] Plan: Continue to provide supportive cares. ?? Wood Machinist Apprentice Nurse?? Safe discharge environment identified:??Yes Barriers to discharge:??Yes, unless medically cleared ?Entered by:??Gayatri Clarke 12/17/2018 21:00 PM ?? [employer] AGENT Gayatri Clarke RN - 12/17/2018 4:00 PM [...] Plan: Continue to provide supportive cares. ?? Wood Machinist Apprentice Nurse Safe discharge environment identified: Yes Barriers to discharge: Yes, unless medically cleared Entered by: Gayatri Clarke 12/17/2018 16:00 PM T EXPRESS AGENT documented in this encounter Miscellaneous Notes Plan [...] active. 5mg Oxycodone given for abdominal pain. Wood Machinist Apprentice Nurse Safe discharge environment identified: Yes Barriers to discharge: Yes, unless medically cleared [employer] EXPRESS AGENT Plan of Care - Sakina Simpson RN [...] has not passed gas. BS active. AmbulatedX1. Wood Machinist Apprentice Nurse Safe discharge environment identified: Yes Barriers to discharge: Yes, unless medically cleared [employer] AGENT Plan of Care - Sakina Simpson RN [...] active. Will have her ambulate after breakfast. Wood Machinist Apprentice Nurse Safe discharge environment identified: Yes Barriers to discharge: Yes, unless medically cleared T EXPRESS AGENT Plan of Care - Mercedes Roque RN [...] 7. Provider specific discharge goals met: No Wood Machinist Apprentice Nurse Safe discharge environment identified: Yes Barriers [...] met and patient is ready for discharge. T EXPRESS AGENT Plan of Care - Mercedes Roque RN - 12/17/2018 2:18 PM CST ROOM # [facility] Living Situation (if not independent, order SW consult):Home with Facility name: assembly lead person: Donato [phone] Activity level at baseline: Independent Activity level on admit: Assist of 2. Patient registered to observation; given Patient Bill of Rights; given the opportunity to ask questions about observation status and their plan of care. Patient has been oriented to the observation room, bathroom and call light is in place. Discussed discharge goals and expectations with patient/family. 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 Incomplete uterovaginal prolapse. 2. Associated cystocele, rectocele and enterocele 3. Stress urinary incontinence. POSTOPERATIVE DIAGNOSES: 1. Incomplete uterovaginal prolapse. 2. Associated cystocele, rectocele and enterocele PROCEDURE: 1. Da Gerardo laparoscopic sacral colpopexy 2. Da Gerardo laparoscopic supracervical hysterectomy 3. Da Gerardo laparoscopic bilateral salpingo-oophorectomy 4. Cystourethroscopy COUNTER TENDER: KENAN Ambrosio ANESTHESIA: General endotracheal. ESTIMATED BLOOD [...] at the conclusion of the procedure. DRAINS: 16-Japanese Mendoza catheter to gravity drainage. PACKING: Saline-soaked [...] draped both abdominally and vaginally, and an 18-Japanese Mendoza catheter was placed to gravity drainage. [...] a saline-soaked vaginal packing. She had a 16-Japanese Mendoza catheter present to gravity drainage. Sponge, lap, and needle counts were found to be correct. There were no complications from surgery. Patient was awoken from anesthesia, and brought to the recovery room in excellent condition. Car Mei MD Please CC to Dr. Mei's office: [address] [place] [address] [address] [place] [address] T EXPRESS AGENT documented in this encounter Plan of Treatment Not on filedocumented as of this encounter Procedures Procedure Name Priority Date/Time Associated Diagnosis Comme nts HEMOGLOBIN Routine 12/18/2018 6:56 AM Results f or this [employer] procedure are i n the results section. SURGICAL PATHOLOGY Routine 12/17/2018 11:00 Resul ts for this EXAM AM [employer] procedure are i n the results section. PROCEDURE, PELVIS, 12/17/2018 7:43 AM UTEROVAGINAL ROBOT-ASSISTED [employer]ENT PROLAPSE, STRESS URINARY INCONTINENCE Special Needs 5'4 / 142#11.2oz per H&P POTASSIUM STAT 12/17/2018 7:08 AM [employer] Resul ts for this procedure are in the results section. HEMOGLOBIN STAT 12/17/2018 7:08 AM [employer] Resul ts for this procedure are in the results section. CREATININE STAT 12/17/2018 7:08 AM [employer] Resul ts for this procedure are in the results section. ABO/RH TYPE AND SCREEN STAT 12/17/2018 7:08 AM [employer] EKG CARDIAC - HIM SCAN 12/10/2018 12:00 AM [employer] documented in this encounter Results Hemoglobin (12/18/2018 6:56 AM [employer]ENT) P athologist Signature Hemoglobin 11.7 11.7 - 15.7 12/18/2018 [facility] g/dL 7:22 AM [facility] HOSPITAL Specimen Anatomical Collection Method Collection Time Receive d Time (Source) Location / / Volume Laterality Blood specimen 12/18/2018 6:56 AM 019 6:57 (specimen) [facility]ENT AM [employer] [employer] Car Mei MD LAB - BLOOD ORDERABLES Performing Organization Address City/State/ZIP Code Phon e Number [facility] [address] [place], [place] [address] [facility] [address] [phone] Surgical pathology exam (12/17/2018 11:00 AM [employer]) Component Value Ref Test Analysis Performed At [facility] Range Method Time Signature Aguilaath Report Patient Name: CHHAYA COON MR#: [id number] Specimen #: [id number] Collected: 12/17/2018 Received: 12/17/2018 Reported: 12/18/2018 12:48 [...] A7 - left ovary (Dictated by: ALEXEY Rogers([facility]) 2018 12:33 PM) MICROSCOPIC: Microscopic examination is performed. The technical component of this testing was completed at the [facility], with the professional compo nent performed at the [facility], [address] [place] [address] ??[phone] ([phone]) CPT Codes: A: 90112-JK2 COLLECTION SITE: Client: [facility] Location: RHOR (R) Specimen (Source) Anatomical Collection Method Collection Time Re ceived Time Location / / Volume Laterality Tissue specimen UTERUS AND 12/17/2018 11:00 (specimen) FALLOPIAN TUBES, AM [employer] CS / Unknown Car ALARCON - FRANCES HAMILTON Performing Organization Address City/State/ZIP Code Phon e Number [place] Creatinine (12/17/2018 7:08 AM [employer] AGENT) athologist Signature Creatinine 0.68 0.52 - 1.04 12/17/2018 [place] mg/dL 7:39 AM [facility] GFR Estimate 89 >60 12/17/2018 [place] mL/min/{1.7 7:39 AM [facility] 3_m2} HOSPITAL Comment: Non GFR Calc Starting 10/09/2018, serum creatinine ba sed estimated GFR (eGFR) will be calculated using the Chronic Kidney Dise ase Epidemiology Collaboration (CKD-EPI) equation. GFR Estimate If >90 >60 mL/min/{1.73_m2} 12/17/2018 7: 39 AM [facility] Comment: GFR Calc Starting 10/09/2018, serum creatinine ba sed estimated GFR (eGFR) will be calculated using the Chronic Kidney Dise ase Epidemiology Collaboration (CKD-EPI) equation. Specimen Anatomical Collection Method Collection Time Receive d Time (Source) Location / / Volume Laterality Blood specimen 12/17/2018 7:08 AM 019 7:09 (specimen) [employer] AGENT AM [facility] [employer] Armando Elizabeth DO LAB - BLOOD ORDERABLES Performing Organization Address City/State/ZIP [facility] Phon e Number [facility] [address] [place], [place] [address] [facility] [address] [address] [address] [phone] Potassium (12/17/2018 7:08 AM [employer] AGENT) athologist Signature Potassium 4.0 3.4 - 5.3 12/17/2018 [facility] mmol/L 7:30 AM [facility] Specimen Anatomical Collection Method Collection Time Receive d Time (Source) Location / / Volume Laterality Blood specimen 12/17/2018 7:08 AM 019 7:09 (specimen) [employer] AGENT AM [facility] [employer]ENT Armando Elizabeth DO LAB - BLOOD ORDERABLES Performing Organization Address City/[facility] Phon e Number [facility] [address] [place], [place] [address] [facility] [address] [address], [facility] [phone] ABO/Rh type and screen (12/17/2018 7:08 AM [employer]ENT) Patholo gist Method Time Signature ABO B 12/17/2018 [facility] 8:15 AM [facility] RH(D) Pos [facility] Antibody Neg 12/17/2018 [place] Screen 8:15 AM [facility] Test Valid [place] 12/17/2018 [facility] Only At [facility] 7:50 AM [facility] HOSPITAL Specimen 12/20/2018 12/17/2018 [facility] Expires 7:50 AM [facility] Specimen Anatomical Collection Method Collection Time Receive d Time (Source) Location / / Volume Laterality Blood specimen 12/17/2018 7:08 AM 019 7:09 (specimen) [employer] AGENT AM [employer] AGENT Car Mei MD LAB - BLOOD BANK TEST ORDER Performing Organization Address City/State/ZIP Code Phon e Number [facility] [address] [place], [place] [address] [place] [address] [address] [place], [place] [address], [facility] [phone] Hemoglobin (12/17/2018 7:08 AM [employer] AGENT) athologist Signature Hemoglobin 14.3 11.7 - 15.7 12/17/2018 [facility] g/dL 7:18 AM [facility] Specimen Anatomical Collection Method Collection Time Receive d Time (Source) Location / / Volume Laterality Blood specimen 12/17/2018 7:08 AM 019 7:09 (specimen) FR[employer] EXPRESS AGENT AM [employer] AGENT Car Mei MD LAB - BLOOD ORDERABLES Performing Organization Address City/State/ZIP Code Phon e Number [facility] [address] [place], [place] [address] [place] [address] [address] [place], [place] [address] [address] [phone] EKG CARDIAC - HIM SCAN (12/10/2018 12:00 AM [employer]ENT) Specimen (Source) Anatomical Location Collection Method / Collectio n Time Received Time / Laterality Volume 12/10/2018 Narrative This result has an attachment that is no t available. Provider Outside ECG ORDERABLES documented in this encounter Visit Diagnoses Diagnosis Post-operative state - Primary Other postprocedural status documented in this encounter Administered Medications Inactive Administered Medications - up to 3 most recent administrations Medication Order MAR Action Action Date Dose Rate Site atorvastatin (LIPITOR) tablet 20 mg Given 12/17/2018 7:42 PM [employer] 20 mg 20 mg, Oral, EVERY EVENING, First dose on 12/17/18 at 2000, Post-procedure fentaNYL (PF) (SUBLIMAZE) injection 25-5 0 mcg Given 12/17/2018 1:19 PM [employer]ENT 50 mcg 25-50 mcg, Intravenous, EVERY 2 [...] 3-5 minutes., PACU Given 12/17/2018 12:47 PM [employer]ENT 50 mcg HYDROmorphone (PF) (DILAUDID) injection 0.2 Given 11/24 10:35 PM [employer] 0.2 mg mg 0.2 mg, Intravenous, EVERY 2 HOURS PRN, other, pain control or improvement in physical function. Hold dose for analgesic side effects., Starting on Mon12/17/18 at 1341, Notify the provider to assess for uncontrolled pain or analgesic side effects. Hold while on IV PROFESSOR OF THEATRE or with regular IV opioid dosing. For ordered IV doses 0.1-4 mg give IV Push undiluted. Administer each 2mg over 2-5 minutes., Post-procedure Given 12/17/2018 6:31 PM [employer] AGENT 0.2 mg Given 12/17/2018 4:25 PM [employer] AGENT 0.2 mg HYDROmorphone (PF) (DILAUDID) injection Given 12/17/2018 12:36 P M [employer] AGENT 0.5 mg 0.3-0.5 mg 0.3-0.5 mg, Intravenous, [...] minutes., PACU/Phase II Given 12/17/2018 12:23 PM [employer]ENT 0.5 mg ketorolac (TORADOL) injection 15 mg Given 12/18/2018 8:24 AM [employer] AGENT 15 mg 15 mg, Intravenous, EVERY 6 [...] minutes. , Post-procedure Given 12/18/2018 1:59 AM [employer] AGENT 15 mg Given 12/17/2018 7:42 PM [employer]ENT 15 mg ondansetron (ZOFRAN) injection 4 mg Given 12/17/2018 12:42 PM [employer] AGENT 4 mg 4 mg, Intravenous, EVERY 30 [...] tablet 5-10 mg Given 12/18/2018 3:46 PM [employer] AGENT 5 mg 5-10 mg, Oral, EVERY 3 HOURS PRN, other, pain control or improvement in physical function. Hold dose for analgesic side effects., Starting on Mon12/17/18 at 1341, Start with the lowest dose. May adjust dose by 5 mg every 3 hours as needed. Notify the provider to assess for uncontrolled pain or analgesic side effects. Hold while on IV PROFESSOR OF THEATRE or with regular IV opioid dosing., Post-procedure Given 12/18/2018 6:26 AM [employer] AGENT 5 mg Given 12/18/2018 2:08 AM [employer] AGENT 5 mg phenazopyridine (PYRIDIUM) tablet 200 mg Given 12/17/2018 7:08 AM [employer] AGENT 200 mg 200 mg, Oral, 60 MIN PRE-OP, Starting on Mon12/17/18 at 0645, For 1 dose, To be administered in pre-op holding with a sip of water., Pre-procedure polyethylene glycol (MIRALAX/GLYCOLAX) Packet Given 12/18/19 8:42 AM [employer] AGENT 17 g 17 g 17 g, Oral, [...] flush 3 mL Given 12/18/2018 6:29 AM [employer] AGENT 3 mLs 3 mL, Intravenous, EVERY 8 HOURS, First dose on Mon12/17/18 at 1342, to lock peripheral IV dormant line. Also Ordered Q1H PRN, Post-procedure Given 12/17/2018 2:08 PM [employer] AGENT 3 mLs sodium chloride (PF) 0.9% PF flush 3 mL Given 12/17/2018 10:36 PM [employer] AGENT 3 mLs 3 mL, Intravenous, EVERY 1 HOUR PRN, line flush, to lock peripheral IV dormant line., Starting on Mon12/17/18 at 1341, Also Ordered EVERY 8 HOURS., Post-procedure Given 12/17/2018 7:45 PM FR[employer] AGENT 3 mLs sodium chloride 0.9% infusion New Bag 12/17/2018 2:06 PM FR[employer] AGENT 100 mL/hr at 100 mL/hr, Intravenous, CONTINUOUS, Post-procedure, Starting on Mon12/17/18 at 1342, Until Mon12/17/18 at 2106 documented in this encounter Active and Recently Administered Medications Times are shown in FR[employer] EXPRESS AGENT. Scheduled Medication Order 12/16/2018 12/17/2018 12/18/2018 atorvastatin (LIPITOR) tablet 20 mg 1941 (Given - Provider: Gayatri Clarke RN) 1999 [...] 1004 (Given - Provider: Car ramos APRN CRNA) 1 g, Intravenous, SEE ADMIN INSTRUCTIONS , [...] g in 100 mL dextrose PRE-MIX (COMPLETED) 08 (Given - Provider: Car ramos APRN CRNA) 2 g, Intravenous, PRE-OP/PRE-PROCEDURE, Starting 12/17/18 at 0645, For 1 dose, Give first dose within 1 hour PRIOR to incision. If patient weight is greater than or equal to 120 kg increase dose to 3 g., Indications: Perioperative Pharmacoprophylaxis, Pre-procedu re ketorolac (TORADOL) injection 15 mg (COMPLETED) 1404 (Given - Provider: Mercedes Roque, TAMEKA)1942 (Given - Provider: Gayatri Clarke RN) 0159 (Given - Provider: Ever Gilman RN)0824 (Given - Provider: Sakina Simpson RN) 15 mg, Intravenous, EVERY 6 HOURS, [...] Post-procedure phenazopyridine (PYRIDIUM) tablet 200 mg (COMPLETED) 707 (Given - Provider: Sugar Tapia, TAMEKA) 200 mg, Oral, 60 MIN PRE-OP, Starting Mo n 12/17/18 at 0645, For 1 dose, To be administered in pre-op holding with a sip of water., Pre-procedure polyethylene glycol (MIRALAX/GLYCOLAX) Packet 17 g 1452 (Not Given - Provider: Mercedes Roque RN - Reason: Patient/family refused) 0842 (Given - Provider: Sakina Simpson RN) 17 g, Oral, DAILY, First dose [...] APRN CRNA)0847 (Anesthesia Volume Adjustment - Provider: Cra Delvalle APRN CRNA) 0011 (Stopped - Provider: [...] mcg (CANCELED) 1247 (Given - Provider: Ida Bolanos, TAMEKA)1319 (Given - Provider: Ida Bolanos RN) 25-50 [...] Mercedes Roque RN)1625 (Given - Provider: Gayatri Clarke RN)1831 (Given - Provider: Gayatri Clarke, TAMEKA)2235 (Given - Provider: Gayatri Clarke RN) 0.2 mg, Intravenous, EVERY 2 HOURS PRN, Starting Mon12/17/18 at 1341, Until Mon12/18/18 at 2019, other, pain control or improvement in physical function. Hold dose for analgesic side effects., Post-proc edure, Notify the provider to assess for uncontrolled pain or analgesic side effects. Hold while on IV PROFESSOR OF THEATRE or with regular IV opioid dosing. For ordered IV doses 0.1-4 mg give IV Push undiluted. Administer each 2mg over 2-5 minutes. HYDROmorphone (PF) (DILAUDID) injection 0.3-0.5 mg (CANCELED ) 1223 (Given - Provider: Ida Bolanos RN)1236 (Given - Provider: Ida Bolanos RN) 0.3-0.5 mg, Intravenous, EVERY 10 MIN AL N, Starting Mon12/17/18 at 1145, Until Mon12/17/18 [...] MD) PRN, Starting Mon12/17/18 at 1109, Intra-procedure naloxone (NARCAN) injection 0.1-0.4 [...] analgesic side effects. Hold while on IV PROFESSOR OF THEATRE or with regular IV opioid dosing., Post-procedure [...] 3 mL 1945 (Given - Provider: Gayatri Clarke RN)2236 (Given - Provider: Gayatri Clarke RN) 3 mL, Intravenous, EVERY 1 HOUR PRN, migel e flush, to lock peripheral IV dormant line., Starting 12/17/18 at 1341, Also Ordered EVERY 8 HOURS., Post-procedure sterile water (bottle) irrigation (CANCELED) 0500 (Given - Provider: Car Mei MD) PRN, Intra-procedure, Starting 12/17/18 at 0500, Until Mon at 1331 Linked [...]
Post-procedure documented in this encounter Care Teams Sales Representative Printing Supplies Relationship Specialty Start Date End Date Anila Quiñones MD PCP - General Family Practice 12/05/18 [facility] [address] [place] [address] documented as of this encounter
--- OUTSIDE RECORDS SUMMARY | 2022-06-30 13:31 | XMS_ITS | Encounter Summary ---
:1950 Author Organization [place] Address [address] [place] [address]. [place] [address] Care Team Providers Name Role Phone Anila Quiñones MD Primary Care Provider Reason for Visit Reason Comments acp Encounter Details Date Type Department Care Team Description 12/20/2018 Documentation Only [facility] [address] [facility] [address] [place] [id number] Social History Tobacco Use Types Packs/Day Years [...] on filedocumented in this encounter Care Teams Window Systems Administrator Relationship Specialty Start Date End Date Anila Quiñones MD PCP - General Family Practice 12/05/18 [facility] [address] [place] [address] documented as of this encounter
--- OUTSIDE RECORDS SUMMARY | 2022-06-30 13:31 | XMS_ITS ---
:1950 Author Name Anila Quiñones Care Team Providers Name Role Phone Anila Quiñones Unavailable Unavailable PROBLEMS Type Condition ICD9-CM Code NET95-FM Code Onset Condition SNO MED Code Dates Status Problem Incomplete N81.2 Active [id number] uterovaginal prolapse Problem [place] incontinence N39.41 Active 87 909418 Problem Post-menopausal N95.2 Active 5244 1000 atrophic vaginitis ALLERGIES Substance Reaction Event Type Date Status Morphine Sulfate does not like the effect Drug Allergy Sep, Active ENCOUNTERS Encounter Location Date Diagnosis [facility] [address] Sep, [place], [place] [id number] [facility] [address] Jan, Encou nter for surgical [place] [address] [place], [place] [address] surgery on the genitourinary sy stem Z48.816 [facility] [address] Dec, [place], [place] [id number] [facility] [address] Dec, Encou nter for surgical [place] [address] [place], [place] [address] surgery on the genitourinary sy stem Z48.816 [facility] [address] Dec, [place], [place] [id number] [facility] [address] Nov, [place], [place] [id number] [facility] [address] Nov, [place] [address] [facility] [address] Nov, Cys tocele and rectocele [place], [place] with incomplete [address] uterovaginal pro lapse N81.2 and Female stress incontinence N39 .3 [facility] [address] Nov, [place], [place] [phone] [facility] [place] [address] [employer] Nov, [address] [address] [facility] [address] Nov, I ncomplete uterovaginal [facility] [address] [place], prolapse N 81.2 ; [place] [address] incontinence N39 .41 and Post-menopausal atrophic vaginitis N95.2 [facility] [address] Nov, U rinary incontinence, [facility] [address] [place], unspecifie d type R32 ; [place] [address] [place] incontinenc e N39.41 and Incomplete uterovaginal pro lapse N81.2 [address] Oct, [address] [address] [facility] [address] Oct, [place], [place] [id number] [facility] [address] Oct, [place], [place] [phone] [facility] [address] Oct, I ncomplete uterovaginal [facility] [address] [place], prolapse N 81.2 ; [place] [address] incontinence N39 .41 and Post-menopausal atrophic vaginitis N95.2 IMMUNIZATIONS No Known Immunizations SOCIAL HISTORY Never Assessed REASON FOR REFERRAL FUNCTIONAL STATUS PLAN OF CARE Activity Details Pending Test Urinalysis, Routine - IH VITAL SIGNS Height 63 in 2018-11-28 Weight 145 lbs 2018-11-28 BMI 25.68 kg/m2 2018-11-28 Blood pressure systolic 122 mm Hg 2018-11-28 Blood pressure diastolic 82 mm Hg 2018-11-28 MEDICATIONS Medication Instructions Dosage Frequency Start End Duration Statu s Date Date Imvexxy Vaginal Two 1 _insert Dec, 90 days Active Maintenance Pack times a Week 2018 10 MCG Aspirin 81 MG Orally Once a 1 tablet 24h 30 day(s) A ctive day Imvexxy Starter Vaginal QHS 1 _insert Dec, 30 days Ac tive Pack 10 MCG 2018 Calcium 500 MG Orally Once a 1 tablet 24h 30 day(s) Active day amLODIPine Orally Once a 1 tablet 24h 30 day(s) Acti ve Besylate 2.5 MG day Multivitamin - as directed Activ e PROCEDURES Procedure Date Ordered Result Body Site ANAL/URINARY MUSCLE STUDY Nov 28, 2018 URINALYSIS, AUTO, W/O SCOPE Nov 22, 2018 ELECTRO-UROFLOWMETRY, FIRST Nov 28, 2018 LSH W/T/O UT 250 G OR LESS Dec 17, 2018 URINALYSIS, AUTO, W/O SCOPE Nov 28, 2018 REPAIR RECTUM Dec 17, 2018 LAPAROSCOPY, SURG, COLPOPEXY Dec 17, 2018 INTRAABDOMINAL PRESSURE TEST Nov 28, 2018 SLING Dec 17, 2018 CYSTOMETROGRAM W/CATECHIST&UP Nov 28, 2018 INSERT BLADDER CATHETER Nov 22, 2018 RESULTS Name Result Date Reference Range Urinalysis, Routine - IH 2018-11-28 Urine Color yellow Yellow - Erin Appearance clear Clear - Glucose neg Bilirubin neg Ketone neg Specific [place] 1.025 Blood neg pH 6.0 Protein neg Urobilinogen 0.2 Nitrite neg Leukocytes neg Glucose Bilirubin Ketones Specific [place] Occult Blood pH Protein Urobilinogen Nitrite Leukocytes REASON FOR VISIT Insurance Providers [facility] Member Patient Patient Patient Patient Patient Subscriber Subscriber Subscriber Group Insurance Plan Plan Plan Plan ID Relationship Address Phone Name Date of ID Name Date of No Type Insurance Insurance Insurance Coverage to Subscriber Address Phone Name Dates BCBS [address] [employer] self Yen [id number] [place] [phone] [facility] [id number] Medicare [id number] Medicare self Yen [id number] ([address] (Ins. [place] [address] Bill) [facility] s [place] [id number] MEDICAL (GENERAL) HISTORY Type Description Date Medical History hypertension Medical History history of ETOH- sober x28 years Medical History pelvic organ prolapse 2018 Surgical History laparoscopy diagnostic for infertility e valuation Surgical History tonsillectomy Surgical History remove oral lesion Surgical History left elbow surgery 1996 Surgical History laparoscopic sacral colpopexy, supra-cer vical hysterectomy, 2019 BSO.
--- NOTE | 2022-06-30 13:45 | MR_ITS ---
[address] [address] Phone:?[phone] Fax:?[phone] Referring Physician Information: Jose Alejandro El [address] [facility] [address] Phone:?[phone] Fax:?[phone] Patient:?Yen Farrar D.O.B:?1950 Sex:?Female Phone:?[phone] [facility] MRN:?[id number] Exam Date:?06/30/2022 ? EXAM: MRI OF THE RIGHT SHOULDER CLINICAL INFORMATION: The patient is a 72-year-old with right shoulder pain. Evaluate for tendinitis, bursitis, or rotator cuff tear. Evaluate for osteoarthritis. PRIOR SURGERY: None reported. COMPARISON STUDIES: There are no prior studies available for comparison. TECHNICAL INFORMATION: Using a 1.5T MR scanner and a localizing shoulder surface coil: 3.0 mm?coronal obliques: PD, T2, STIR 3.0 mm?sagittal obliques: PD, T2 3.0 mm?axials: PD, T2 FINDINGS: Articular/Extraarticular collections: Effusion: Mild to moderate. Subacromial/subdeltoid: Mild to moderate fluid is seen within the subacromial/subdeltoid bursa. Findings are in keeping with changes of bursitis. Subcoracoid: No evidence for bursitis. Osseous structures: Proximal humerus: No evidence for bony injury to the proximal humerus can be seen. There is no evidence for greater tuberosity fracture. No Hill-Sachs or reverse Hill-Sachs deformity is seen. Glenoid: No acute bony abnormality of the glenoid fossa or glenoid neck can be seen. Acromioclavicular joint: Mild to moderate changes of acromioclavicular joint arthrosis are present and can be seen on sagittal series 7 image 11 and on coronal series 6 image 12. Coracoacromial arch: Acromion morphology: Type II. No evidence for os acromiale. Acromiohumeral space: Moderately narrowed. Coracohumeral space: Mildly narrowed. Rotator cuff and deltoid: Supraspinatus: Moderate changes of supraspinatus tendinosis can be seen. There is partial-thickness superficial surface tearing of the distal tendon fibers anteriorly seen on coronal series 4 image 12 and measuring approximately 6 mm in greatest dimension. The tearing involves up to 50% of the tendon thickness. Additional intrasubstance splitting of the distal tendon fibers can be seen on coronal series 4 image 14. No full-thickness tearing or retraction is seen. No atrophic changes of the supraspinatus muscle belly are present. Infraspinatus: Moderate infraspinatus tendinosis can be seen. There is no evidence for full or partial-thickness tearing. No atrophic changes of the infraspinatus muscle belly are identified. Teres minor: No evidence for tendinosis, tearing, or associated muscle belly atrophy. Subscapularis: Moderate subscapularis tendinosis can be seen. There is no evidence for full or partial-thickness tearing. No atrophic changes of the subscapularis muscle belly are noted. Deltoid: No evidence for strain or tearing. Biceps tendon: Thickening and splitting of the intra-articular portion of the long head of the biceps can be seen on sagittal series 8 image 12, in keeping with mild to moderate tendinosis. No biceps abnormalities are seen within the biceps sulcus region. There is no evidence for biceps rupture or dislocation. Glenohumeral joint and labrum: Articular Cartilage: No chondral injuries along the articular surfaces of the glenohumeral articulation can be seen. No osteoarthritic changes are identified. Labrum: Degeneration, blunting, and irregularity of the entire glenoid labrum can be seen with superimposed areas of tearing involving the superior, inferior, and posterior portions. No paralabral ganglion cyst formation is present. Capsular Soft Tissues: Thickening of the capsular structures of the glenohumeral articulation can be seen in the region of the axillary recess and rotator cuff interval. The findings are in distant with changes of adhesive capsulitis. CONCLUSION: 1. Moderate supraspinatus, infraspinatus, and subscapularis tendinosis. There is partial-thickness superficial surface tearing of the supraspinatus tendon fibers with additional intrasubstance splitting. No full-thickness tearing or retraction of the rotator cuff is noted. 2. Thickening of the capsular structures of the glenohumeral joint, in keeping with adhesive capsulitis. 3. Glenohumeral joint effusion and subacromial/subdeltoid bursitis. 4. Mild to moderate acromioclavicular joint arthrosis with moderate narrowing of the acromiohumeral space. 5. Degeneration and tearing of the glenoid labrum. 6. Intra-articular biceps tendinosis. There is no evidence for rupture or dislocation. AEC Electronically signed on 07/01/2022 7:12:00 AM by Steve Quinonez M.D.
== END 2022-06-30 13:29 | disposition home or self-care (01) ==
LOC: MRI 13:28
PROVIDERS: PCP Family Medicine; Visit Provider Physician Assistant Surgical
DX: M25.511 Pain in right shoulder (principal); S49.91XA Unspecified injury of right shoulder and upper arm, initial encounter; M25.411 Effusion, right shoulder; M19.011 Primary osteoarthritis, right shoulder; S43.431A Superior glenoid labrum lesion of right shoulder, initial encounter; M75.01 Adhesive capsulitis of right shoulder
CPT/HCPCS: 73221

== ENCOUNTER 2022-11-11 08:15 | Outpatient (RCR) | payer MEDICARE, BC, SELFPAY ==
--- NOTE | 2022-07-22 11:21 | PT.OPDNX ---
Please sign the recertification note below to extend the patient's POC due to continued symptoms and ROM deficits. Thank you. PT [facility] Daily Note PT [facility] Daily Note Start: 05/05/22 12:57 Freq: Status: Active Protocol: Document 07/22/22 07:28 TLQ (Rec: 07/22/22 11:16 TLQ [id number]) E-signed By Basia Sorto DPT PT OP Daily Progress Note Visit Information Note Type Recert/Progress Note Visit Number 8 Insurance Information Recert Due Date 10/20/22 Insurance Name Medicare B,[employer] Medical Diagnosis Rt biceps tendinitis Treating Diagnosis R shoulder pain; Decreased R shoulder ROM; Decreased R shoulder strength Referring MD Eduarda Rose Subjective Subjective Patient states she had been in therapy here earlier this summer for her R shoulder, felt like her shoulder got worse so she went back to her MD. Had MRI on 06/30/22, states results showed a thickening/ splitting of the biceps tendon in addition to rotator cuff thickening. Has the most pain with reaching out to her R side or lifting her hand above her head with her palm up. Painful to tray to an curl her hair. States she would like clear instructions regarding what she should do for her shoulder. Reports her daughter is having twins in November and would like to be able to hold them. States she's had 2 falls since she started therapy in March, one where she had to brace herself with her R arm, feels these falls had set her back. Would like to be able to ride her bike without shoulder pain. Pain Comments 07/02 when reaching to side, brief/sharp pain Preferred Name Yen Precautions Treatment Precautions/Contraindications Osteoporosis, HTN Home Exercise Home Exercise Comments Hand Talk Access Code: [email or web address] URL: [email or web address] Date: 07/22/2022 Prepared by: Basia Sorto Exercises Supine Shoulder Flexion Extension AAROM with Dowel - 2 x daily - 1 sets - 10 reps Supine Shoulder External Rotation with Dowel - 2 x daily - 1 sets - 10 reps Seated Scapular Retraction - 2 x daily - 1 sets - 10 reps Standing Isometric Shoulder External Rotation with Doorway - 2 x daily - 1 sets - 10 reps - 5 seconds hold Objective Other/Pertinent Objective ROM Shoulder flexion: 106 pain Shoulder abduction: 70 pain Shoulder ER: Level of occiput, 20 pain Shoulder IR: Level of sacrum, 84 MMT: R Shoulder flexion: 4+ (3+ w. palm up to bias biceps; positive speed's test) Shoulder abduction: 4- pain ER: 4+ mild pain IR: 4+ Palpation: Very tender long head of biceps tendon and proximal bicep muscle. Mild tenderness infraspinatus. Functional Test Performed & Score SPADI; 62 Patient Instructed in Risks/Benefits Yes Therapeutic Exercise Therapeutic Exercise Minutes (minutes) 12 Therapeutic Exercise: To Restore to improve pain-free ROM and Functional Status strength: - supine shoulder flexion AAROM, x15 - supine shoulder ER AAROM, x15 - seated shoulder retraction for posture, x10 - standing shoulder ER isometric with towel roll, 10x5 second holds Manual Therapy Techniques Manual Therapy Minutes (minutes) 30 Manual Therapy Techniques to improve blood flow and soft tissue mobility: -Supine for STM, cross friction, cupping of biceps tendons, bicep muscle -Sidelying for STM and cupping of infraspinatus tendon and muscle Other Interventions Provided Other Interventions Provided Spent time at beginning of session reviewing patient symptoms and re-assessment of R shoulder ROM and strength - 15 minutes Patient education regarding tissue healing expectations and POC moving forward Treatment Minutes Timed Code Treatment Minutes 42 Total Treatment Time 42 Billing Units Manual Therapy Units 2 Therapeutic Exercise Units 1 Assessment/Impression Assessment/Impression Patient returned to therapy today following brief pause in services. Continues to have pain in her R shoulder, specifically with activities that load the proximal bicep tendon. Spent time at beginning of session reviewing patient history and shoulder symptoms. Demonstrated loss of R shoulder AROM for flexion, abduction, and external rotation since her last visit. Highly tender with palpation of proximal bicep tendon and muscle belly, mild tenderness at R infraspinatus. Performed skilled STM to reduce tissue irritation and promote blood flow for healing. Worked on pain-free AAROM interventions toward end of session to prevent loss of glenohumeral mobility. Due to frequency and severity of patients symptoms , in addition to limitations in shoulder ROM, the patient will greatly benefit from continued skilled interventions. Plan of Care Physical Therapy Goals Prior to 10/20/2022... 1. Pt will bike for 45 minutes and report less than 3/10 shoulder pain to show improvements in pain and function for usual exercises 2. Pt will demonstrate shoulder active range of motion >150 degrees in involved upper extremity in order to show functional ability to reach into cabinets at home 3. Pt will lift laundry basket at home and report no shoulder pain to show improvements in shoulder pain for performing household duties 3. Pt will demonstrate at least a 13 point (MDC) improvement in SPADI score to show improvements in pain and disability, and improved functional capacity of their shoulder 4. Pt will be independent in HEP in order to show ability to self manage condition after discharge Daily Plan of Care Change POC; See Comments Daily Plan of Care Comments NEW POC: 1x/week for an additional 8-10 weeks/visits MT to R bicep and infraspinatus Pain-free AAROM RC isometric strength Postural interventions Trial kinesiotape to offload R bicep Certification I Certify That: Therapy Services Provided, Therapy Plan Established, Therapy Plan Reviewed Recertification Information Initial Certification Date 05/05/22 Recertification Start Date 07/22/22 Recertification Due Date 10/20/22 Reasons to Continue Skilled Therapy Patient returned to therapy today with continued irritation to her R proximal bicep tendon. Had been in therapy for similar symptoms a few months ago, pain has worsened following recent falls. The pain limits her AROM and ability to perform functional daily tasks such as curling her hair or reaching overhead and out toward her side. She presented with significant tenderness to R bicep muscle belly and proximal tendon. Also had mild tenderness with palpation of the R infraspinatus. Due to ROM limitations and soft tissue irritability, the patient would greatly benefit from continued PT interventions to reduce R shoulder pain and improve strength and ROM to perform daily self-care activities. Rehabilitation Potential Good Continued Plan of Care and Interventions AAROM with progression toward pain-free AROM R shoulder strength Postural interventions Manual therapy to R shoulder Provider Signature Shows Agreement With POC & Medical Necessity Physician Comment/Change Comment or Changes Physician NPI Number #
== END 2022-11-24 15:41 | disposition home or self-care (01) ==
PROVIDERS: PCP Family Medicine; Visit Provider Physician Assistant Surgical
DX: M25.511 Pain in right shoulder (principal); Z51.89 Encounter for other specified aftercare
CPT/HCPCS: 97110; 97140; 97162

== ENCOUNTER 2024-07-12 11:00 | Outpatient (RCR) | payer MEDICARE, BC, SELFPAY | END 2024-09-04 17:43 | disposition home or self-care (01) | PROVIDERS: PCP Family Medicine; Visit Provider Student in an Organized Health Care Education/Training Program | DX: H81.11 Benign paroxysmal vertigo, right ear (principal); Z51.89 Encounter for other specified aftercare | CPT/HCPCS: 95992; 97110; 97140; 97161 ==